=== PATIENT | male | born 1945 | race American Indian/Alaskan Native ===

== ENCOUNTER 2018-09-29 03:26 | Inpatient (IN) | payer MEDICARE ==
[2018-09-29] MEDS ORDERED: MethylPREDNISolone 40 mg Vial IVP STA (03:50)
[2018-09-29 04:12] LABS: VENOUS BLOOD GAS BASE EXCESS -4.7 mmol/L (0.0-2.0); VENOUS BLOOD GAS PCO2 37 mmHg (40-60); VENOUS BLOOD GAS PO2 54 mm/Hg (30-55); VENOUS BLOOD PH 7.35 (7.32-7.43)
[2018-09-29 04:14] LABS: BASO # 0.1 K/uL (0.0-0.2); BASO % 1.1 % (0.0-2.0); EOS # 0.6 K/uL (0.0-0.7); EOS % 9.1 % (0.0-4.0); HEMOGLOBIN 12.1 g/dL (12.0-18.0); LYMPH # 0.5 K/uL (1.0-4.3); LYMPH % 8.3 % (20.0-40.0); MEAN CELL VOLUME 77.3 fL (80.0-94.0); MEAN CORPUSCULAR HEMOGLOBIN 24.3 pg (27.0-31.0); MEAN CORPUSCULAR HGB CONC 31.4 g/dL (33.0-37.0); MONO # 0.7 K/uL (0.0-0.8); MONO % 11.9 % (0.0-10.0); NEUT # 4.4 K/uL (1.8-7.0); NEUT % 69.6 % (50.0-75.0); NRBC % 0.1 % (0.0-2.0); PLATELET COUNT 130 K/uL (130-400); RBC 4.99 Mil/uL (4.40-5.90); RED CELL DISTRIBUTION WIDTH 16.1 % (11.5-14.5); WHITE BLOOD COUNT 6.3 K/uL (4.8-10.8)
[2018-09-29 04:19] LABS: INR 1.1; PROTHROMBIN TIME 12.1 SECONDS (9.7-12.2)
[2018-09-29 04:46] LABS: ALB/GLOB RATIO 2.1 (1.0-2.1); ALBUMIN 5.2 g/dL (3.5-5.0); CALCIUM 9.7 mg/dl (8.6-10.4); TROPONIN I 0.205 ng/mL (0.00-0.120)
[2018-09-29 04:58] LABS: BASOPHIL 1 % (0-2); EOSINOPHIL 9 % (0-4); LYMPHOCYTE 9 % (20-40); MONOCYTE 14 % (0-10); NEUTROPHIL 67 % (50-75); TOTAL CELLS COUNTED 100
[2018-09-29 04:59] LABS: ANISOCYTOSIS SLIGHT; OVALOCYTES SLIGHT; PLATELET ESTIMATE SLIGHTLY DECREASED (NORMAL)
[2018-09-29 05:00] LABS: HYPOCHROMIC SLIGHT; MICROCYTOSIS SLIGHT; SCHISTOCYTES SLIGHT
[2018-09-29 05:01] LABS: POLYCHROMIC SLIGHT
[2018-09-29] MEDS ORDERED: Calcium Gluconate 4.65 mEq/10 ml Inj IVP STA (05:05)
[2018-09-29] MEDS ORDERED: Dextrose 50% SYRINGE Inj (50 ml) IV STA (05:05)
[2018-09-29] MEDS ORDERED: (Novolin R) Insulin Human Regular 100 units/ml vial SC STA (05:05)
[2018-09-29] MEDS ORDERED: Albuterol 0.083% Inhal Sol (2.5 mg/3 mL) UD INH STA (05:05)
[2018-09-29] MEDS ORDERED: Dextrose 25% Inj (10ml) ONE (05:18)
[2018-09-29] MEDS ORDERED: Calcium Gluconate 4.65 mEq/10 ml Inj ONE (05:18)
[2018-09-29] MEDS ORDERED: Albuterol 0.083% Inhal Sol (2.5 mg/3 mL) UD ONE (05:19)
[2018-09-29] MEDS ORDERED: (Novolin R) Insulin Human Regular 100 units/ml vial ONE (05:20)
--- NOTE | 2018-09-29 05:33 | C.PDOC ---
History Of Present Illness 73 year old male visiting from [place] presents to the ED complaining of shortness of breath for the last 2 days. Patient is in the end stage of a renal disease and missed his dialysis on Sunday. He will resume dialysis on Sunday. Kee nbadoni claims that his tongue feels bigger than normal. Time Seen by Provider: 09/29/18 03:49 Chief Complaint (Nursing): Shortness Of Breath History Per: Patient History/Exam Limitations: no limitations Onset/Duration Of Symptoms: Days (2) Current Symptoms Are (Timing): Still Present Past Medical History Reviewed: Historical Data, Nursing Documentation, Vital Signs Vital Signs: Last Vital Signs Temp 98.2 F 09/29/18 03:38 Pulse 73 09/29/18 03:38 Resp 24 09/29/18 03:38 BP 216/101 H 09/29/18 03:38 Pulse Ox 100 09/29/18 03:38 - Medical History PMH: HTN, Hyperlipidemia, End Stage Renal Disease Surgical History: Cholecystectomy (x3yrs ago) Family History: States: No Known Family Hx - Social History Hx Alcohol Use: Yes Hx Substance Use: No - Immunization History Hx Tetanus Toxoid Vaccination: No Hx Influenza Vaccination: No Review Of Systems Constitutional: Negative for: Fever, Chills, Weakness Eyes: Negative for: Redness, Other (scleral icterus) ENT: Negative for: Ear Discharge, Nose Discharge, Nose Congestion, Throat Pain Cardiovascular: Negative for: Chest Pain Respiratory: Positive for: Shortness of Breath. Negative for: Cough Gastrointestinal: Negative for: Nausea, Vomiting, Diarrhea Genitourinary: Negative for: Dysuria, Hematuria Musculoskeletal: Negative for: Back Pain Skin: Negative for: Rash Neurological: Negative for: Weakness, Numbness, Confusion, Dizziness ED Course And Treatment - Laboratory Results Result Diagrams: 09/29/18 04:11 09/29/18 04:11 Lab Results: pO2 54 mm/Hg (30-55) 09/29/18 04:05 VBG pH 7.35 (7.32-7.43) 09/29/18 04:05 VBG pCO2 37 mmHg (40-60) L 09/29/18 04:05 VBG HCO3 20.9 mmol/L 09/29/18 04:05 VBG Total CO2 21.5 mmol/L (22-28) L 09/29/18 04:05 VBG O2 Sat (Calc) 85.2 % (40-65) H 09/29/18 04:05 VBG Base Excess -4.7 mmol/L (0.0-2.0) L 09/29/18 04:05 VBG Potassium 6.2 mmol/L (3.6-5.2) H* 09/29/18 04:05 Sodium 136.0 mmol/l (132-148) 09/29/18 04:05 Chloride 102.0 mmol/L (98-107) 09/29/18 04:05 Glucose 98 mg/dl (75-110) 09/29/18 04:05 Lactate 0.7 mmol/L (0.7-2.1) 09/29/18 04:05 Crit Value Called To Rupa conway/rn 09/29/18 04:05 Crit Value Called By Elton pino/rt 09/29/18 04:05 Crit Value Read Back Y 09/29/18 04:05 Blood Gas Notified Time 415 09/29/18 04:05 PT 12.1 SECONDS (9.7-12.2) 09/29/18 04:11 INR 1.1 09/29/18 04:11 Troponin I 0.2050 ng/mL (0.00-0.120) H* 09/29/18 04:11 NT-Pro-B Natriuret Pep 10702 pg/mL (0-900) H 09/29/18 04:11 Total Bilirubin 0.7 mg/dL (0.2-1.3) 09/29/18 04:11 AST 35 U/L (17-59) 09/29/18 04:11 ALT 23 U/L (21-72) 09/29/18 04:11 Alkaline Phosphatase 81 U/L (38-126) 09/29/18 04:11 Total Protein 7.7 g/dL (6.3-8.3) 09/29/18 04:11 Albumin 5.2 g/dL (3.5-5.0) H 09/29/18 04:11 Globulin 2.4 gm/dL (2.2-3.9) 09/29/18 04:11 Albumin/Globulin Ratio 2.1 (1.0-2.1) 09/29/18 04:11 O2 Sat by Pulse Oximetry: 100 Disposition - Disposition
--- NOTE | 2018-09-29 05:33 | C.PDOC ---
History Of Present Illness 73 year old male visiting from [place] presents to the ED complaining of shortness of breath for the last 2 days. Patient is in the end stage of a renal disease and missed his dialysis on Sunday. He will resume dialysis on Sunday. P guy claims that his tongue feels bigger than normal. <MerlineAlejandro - Last Filed: 09/29/18 06:48> History Per: Patient History/Exam Limitations: no limitations Onset/Duration Of Symptoms: Days (2) Current Symptoms Are (Timing): Still Present Associated Symptoms: denies: Fever, Chills, Sweating, Chest Pain <Alejandro Rick - Last Filed: 09/29/18 06:48> <Hayley Ferreira - Last Filed: 09/29/18 07:52> Time Seen by Provider: 09/29/18 03:49 Chief Complaint (Nursing): Shortness Of Breath Past Medical History Reviewed: Historical Data, Nursing Documentation, Vital Signs Vital Signs: Last Vital Signs Temp 98.2 F 09/29/18 03:38 Pulse 73 09/29/18 03:38 Resp 24 09/29/18 03:38 BP 216/101 H 09/29/18 03:38 Pulse Ox 100 09/29/18 03:38 - Medical History PMH: HTN, Hyperlipidemia, End Stage Renal Disease Surgical History: Cholecystectomy (x3yrs ago) Family History: States: No Known Family Hx - Social History Hx Alcohol Use: Yes Hx Substance Use: No - Immunization History Hx Tetanus Toxoid Vaccination: No Hx Influenza Vaccination: No <MerlineAlejandro - Last Filed: 09/29/18 06:48> Vital Signs: Last Vital Signs Temp 98.2 F 09/29/18 03:38 Pulse 76 09/29/18 06:58 Resp 24 09/29/18 03:38 BP 216/101 H 09/29/18 03:38 Pulse Ox 100 09/29/18 06:51 <Hayley Ferreira - Last Filed: 09/29/18 07:52> Review Of Systems Constitutional: Negative for: Fever, Chills, Weakness Eyes: Negative for: Redness, Other (scleral icterus) ENT: Positive for: Other (tongue "feels bigger than normal"). Negative for: Ear Discharge, Nose Discharge, Nose Congestion, Throat Pain Cardiovascular: Negative for: Chest Pain Respiratory: Positive for: Shortness of Breath. Negative for: Cough Gastrointestinal: Negative for: Nausea, Vomiting, Abdominal Pain, Diarrhea Musculoskeletal: Negative for: Back Pain Skin: Negative for: Rash Neurological: Negative for: Weakness, Numbness, Dizziness <ChicoblayneAlejandro - Last Filed: 09/29/18 06:48> Physical Exam - Physical Exam Appears: Well, Non-toxic, In Acute Distress (mild respiratory distress) Skin: Normal Color, Warm, Dry Head: Atraumatic, Normacephalic Eye(s): bilateral: Normal Inspection, PERRL, EOMI Ear(s): Bilateral: Normal Nose: Normal Oral Mucosa: Moist Tongue: Swelling (able to swallow secretions) Lips: No Swelling Throat: Other (airway maintained) Neck: Normal, Trachea Midline, Supple Chest: Symmetrical Cardiovascular: Other Respiratory: Accessory Muscle Use, No Rales, No Rhonchi, No Stridor, No Wheezing, Other (moving air well) Gastrointestinal/Abdominal: No Distention Extremity: No Pedal Edema Extremity: Left: Other (shunt to left bicep), Bilateral: Atraumatic Pulses: Left Radial: Normal, Right Radial: Normal Neurological/Psych: Oriented x3, Normal Cranial Nerves <ChicoblayneAlejandro - Last Filed: 09/29/18 06:48> ED Course And Treatment - Laboratory Results Result Diagrams: 09/29/18 04:11 09/29/18 04:11 Lab Results: pO2 54 mm/Hg (30-55) 09/29/18 04:05 VBG pH 7.35 (7.32-7.43) 09/29/18 04:05 VBG pCO2 37 mmHg (40-60) L 09/29/18 04:05 VBG HCO3 20.9 mmol/L 09/29/18 04:05 VBG Total CO2 21.5 mmol/L (22-28) L 09/29/18 04:05 VBG O2 Sat (Calc) 85.2 % (40-65) H 09/29/18 04:05 VBG Base Excess -4.7 mmol/L (0.0-2.0) L 09/29/18 04:05 VBG Potassium 6.2 mmol/L (3.6-5.2) H* 09/29/18 04:05 Sodium 136.0 mmol/l (132-148) 09/29/18 04:05 Chloride 102.0 mmol/L (98-107) 09/29/18 04:05 Glucose 98 mg/dl (75-110) 09/29/18 04:05 Lactate 0.7 mmol/L (0.7-2.1) 09/29/18 04:05 Crit Value Called To Rupa conway/rn 09/29/18 04:05 Crit Value Called By Elton pino/rt 09/29/18 04:05 Crit Value Read Back Y 09/29/18 04:05 Blood Gas Notified Time 415 09/29/18 04:05 PT 12.1 SECONDS (9.7-12.2) 09/29/18 04:11 INR 1.1 09/29/18 04:11 Troponin I 0.2050 ng/mL (0.00-0.120) H* 09/29/18 04:11 Total Bilirubin 0.7 mg/dL (0.2-1.3) 09/29/18 04:11 AST 35 U/L (17-59) 09/29/18 04:11 ALT 23 U/L (21-72) 09/29/18 04:11 Alkaline Phosphatase 81 U/L (38-126) 09/29/18 04:11 Total Protein 7.7 g/dL (6.3-8.3) 09/29/18 04:11 Albumin 5.2 g/dL (3.5-5.0) H 09/29/18 04:11 Globulin 2.4 gm/dL (2.2-3.9) 09/29/18 04:11 Albumin/Globulin Ratio 2.1 (1.0-2.1) 09/29/18 04:11 O2 Sat by Pulse Oximetry: 100 (RA) Pulse Ox Interpretation: Normal <Alejandro Rick - Last Filed: 09/29/18 06:48> - Laboratory Results Result Diagrams: 09/29/18 04:11 09/29/18 04:11 Lab Results: pO2 54 mm/Hg (30-55) 09/29/18 04:05 VBG pH 7.35 (7.32-7.43) 09/29/18 04:05 VBG pCO2 37 mmHg (40-60) L 09/29/18 04:05 VBG HCO3 20.9 mmol/L 09/29/18 04:05 VBG Total CO2 21.5 mmol/L (22-28) L 09/29/18 04:05 VBG O2 Sat (Calc) 85.2 % (40-65) H 09/29/18 04:05 VBG Base Excess -4.7 mmol/L (0.0-2.0) L 09/29/18 04:05 VBG Potassium 6.2 mmol/L (3.6-5.2) H* 09/29/18 04:05 Sodium 136.0 mmol/l (132-148) 09/29/18 04:05 Chloride 102.0 mmol/L (98-107) 09/29/18 04:05 Glucose 98 mg/dl (75-110) 09/29/18 04:05 Lactate 0.7 mmol/L (0.7-2.1) 09/29/18 04:05 Crit Value Called To Rupa conway/rn 09/29/18 04:05 Crit Value Called By Elton pino/rt 09/29/18 04:05 Crit Value Read Back Y 09/29/18 04:05 Blood Gas Notified Time 415 09/29/18 04:05 PT 12.1 SECONDS (9.7-12.2) 09/29/18 04:11 INR 1.1 09/29/18 04:11 Troponin I 0.2050 ng/mL (0.00-0.120) H* 09/29/18 04:11 NT-Pro-B Natriuret Pep 79287 pg/mL (0-900) H 09/29/18 04:11 Total Bilirubin 0.7 mg/dL (0.2-1.3) 09/29/18 04:11 AST 35 U/L (17-59) 09/29/18 04:11 ALT 23 U/L (21-72) 09/29/18 04:11 Alkaline Phosphatase 81 U/L (38-126) 09/29/18 04:11 Total Protein 7.7 g/dL (6.3-8.3) 09/29/18 04:11 Albumin 5.2 g/dL (3.5-5.0) H 09/29/18 04:11 Globulin 2.4 gm/dL (2.2-3.9) 09/29/18 04:11 Albumin/Globulin Ratio 2.1 (1.0-2.1) 09/29/18 04:11 <Hayley Ferreira - Last Filed: 09/29/18 07:52> Medical Decision Making Medical Decision Making: Plan: Blood work, Glucose finger stick, EKG and Chest X-Ray ordered. IV fluids, Albuterol inhaler, and Bipap administered. Patient improved after bipap and meds <Alejandro Rick - Last Filed: 09/29/18 06:48> Disposition - Disposition Disposition Time: 05:33 <Alejandro Rick - Last Filed: 09/29/18 06:48> <Hayley Ferreira - Last Filed: 09/29/18 07:52> - Disposition Disposition: HOSPITALIZED Condition: STABLE - Clinical Impression Clinical Impression: Hyperkalemia, Fluid overload, Shortness of breath, ESRD needing dialysis - Scribe Statement The provider has reviewed the documentation as recorded by the Scribe (Amy Mitchell) All medical record entries made by the Scribe were at my direction and personally dictated by me. I have reviewed the chart and agree that the record accurately reflects my personal performance of the history, physical exam, medical decision making, and the department course for this patient. I have also personally directed, reviewed, and agree with the discharge instructions and disposition. <Alejandro Rick - Last Filed: 09/29/18 06:48> Decision To Admit - Pt Status Changed To: Hospital Disposition Of: Observation - . Bed Request Type: Regular Admitting Physician: Ainsley Choudhary <MerlineAlejandro - Last Filed: 09/29/18 06:48> <Hayley Ferreira - Last Filed: 09/29/18 07:52> - . Patient Diagnosis: Hyperkalemia, Fluid overload, Shortness of breath, ESRD needing dialysis Addendum Addendum: 09/29/18 07:50 Patient persistently hypertensive, twitching. Contacted HD staff, comming in for HD. Patient to go to the ICU. Dr. Barnes at the bedside. <Hayley Ferreira - Last Filed: 09/29/18 07:52>
--- NOTE | 2018-09-29 06:28 | CP.PCM.HP ---
<Tres Coello - Last Filed: 09/29/18 07:01> History of Present Illness - History of Present Illness History of Present Illness: Medicine History and Physical for Hospitalist Service, Dr. Ainsley Choudhary 73 y o male PMhx ESRD on HD, HTN, hypothyroidism presents to the ED c/o worsening shortness of breath x 2 days. Pt is visiting from [place] with for grandsons birthday this weekend and states they purposely missed HD appt on Sunday in [place] because they were away. Pts provided most of history at bedside due to pts current clinical status. States that pt was unable to fall asleep overnight due to worsening shortness of breath for the past several hrs at rest. When the shortness of breath started 2 days ago, pt thought it was 2/2 seasonal allergies and took dose of Benadryl for symptoms, which only helped a little. Also today c/o tongue swelling but pt states since being in the ED that has improved. Denies headache, dizziness, vision changes, chest pain, palpitations, n/v/d/c, abd pain, urinary complaints, LE edema, or other symptoms. PMhx: as noted above PSurgHx: Hernia surgery 3 mos ago, total thyroidectomy 2/2 nodules 7-8 y ago, cholecystectomy ([id number]) Allergies: NKDA Home meds: reviewed as per BRANDAN Dudley hx: DM2 Soc hx: Former cigar smoker quit 10 y ago; admits to having several alcoholic drinks this past weekend; denies illicit drug use; lives in [place] with Present on Admission - Present on Admission Any Indicators Present on Admission: No Review of Systems - Constitutional Constitutional: Fatigue, Malaise. absent: Chills, Fever - EENT Eyes: absent: Change in Vision - Cardiovascular Cardiovascular: Dyspnea, Dyspnea on Exertion. absent: Chest Pain, Palpitations, Pedal Edema, Syncope - Respiratory Respiratory: Dyspnea. absent: Cough, Wheezing, Chest Congestion - Gastrointestinal Gastrointestinal: absent: Abdominal Pain, Constipation, Diarrhea, Nausea, Vomiting - Genitourinary Genitourinary: absent: Change in Urinary Stream, Difficulty Urinating, Dysuria Past Patient History - Infectious Disease Hx of Infectious Diseases: None - Past Social History Smoking Status: Never Smoked - CARDIAC Hx Hypertension: Yes - RENAL Hx Dialysis: Yes Type of Dialysis Access: fistula to left arm - PSYCHIATRIC Hx Substance Use: No - SURGICAL HISTORY Hx Cholecystectomy: Yes (x3yrs ago) Meds Allergies/Adverse Reactions: Allergies Allergy/AdvReac Type Severity Reaction Status Date / Time No Known Allergies Allergy Unverified 09/29/18 03:41 Physical Exam - Constitutional Appears: Non-toxic, No Acute Distress Additional comments: On 100% non-rebreather mask - Head Exam Head Exam: ATRAUMATIC, NORMOCEPHALIC - Eye Exam Eye Exam: EOMI, Normal appearance, PERRL - ENT Exam ENT Exam: Mucous Membranes Moist - Respiratory Exam Respiratory Exam: Clear to Auscultation Bilateral, NORMAL BREATHING PATTERN. absent: Rales, Rhonchi, Wheezes - Cardiovascular Exam Cardiovascular Exam: REGULAR RHYTHM, +S1, +S2. absent: Gallop, Rubs, Systolic Murmur - GI/Abdominal Exam GI & Abdominal Exam: Normal Bowel Sounds, Soft. absent: Distended, Organomegaly, Tenderness - Extremities Exam Extremities exam: Positive for: full ROM, normal capillary refill, normal inspection, pedal pulses present. Negative for: pedal edema, tenderness - Neurological Exam Neurological exam: Alert, CN II-XII Intact, Oriented x3, Reflexes Normal - Skin Skin Exam: Dry, Intact, Normal Color, Warm Results - Vital Signs Recent Vital Signs: Last Vital Signs Temp 98.2 F 09/29/18 03:38 Pulse 73 09/29/18 03:38 Resp 24 09/29/18 03:38 BP 216/101 H 09/29/18 03:38 Pulse Ox 100 09/29/18 05:53 - Labs Result Diagrams: 09/29/18 04:11 09/29/18 04:11 Labs: Laboratory Results - last 24 hr 09/29/18 09/29/18 09/29/18 03:42 04:05 04:11 WBC 6.3 RBC 4.99 Hgb 12.1 Hct 38.5 MCV 77.3 L MCH 24.3 L MCHC 31.4 L RDW 16.1 H Plt Count 130 MPV 9.0 Neut % (Auto) 69.6 Lymph % (Auto) 8.3 L Barry % (Auto) 11.9 H Eos % (Auto) 9.1 H Baso % (Auto) 1.1 Neut # (Auto) 4.4 Lymph # (Auto) 0.5 L Barry # (Auto) 0.7 Eos # (Auto) 0.6 Baso # (Auto) 0.1 Neutrophils % (Manual) 67 Lymphocytes % (Manual) 9 L Monocytes % (Manual) 14 H Eosinophils % (Manual) 9 H Basophils % (Manual) 1 Platelet Estimate Slightly decreased L Polychromasia Slight Hypochromasia (manual) Slight Anisocytosis (manual) Slight Microcytosis (manual) Slight Macrocytosis (manual) Slight Ovalocytes Slight Schistocytes Slight PT INR pO2 54 VBG pH 7.35 VBG pCO2 37 L VBG HCO3 20.9 VBG Total CO2 21.5 L VBG O2 Sat (Calc) 85.2 H VBG Base Excess -4.7 L VBG Potassium 6.2 H* Sodium 136.0 Chloride 102.0 Glucose 98 Lactate 0.7 Crit Value Called To Rupa conway/rn Crit Value Called By Elton pino/rt Crit Value Read Back Y Blood Gas Notified Time 415 Potassium Carbon Dioxide Anion Gap BUN Creatinine Est GFR ( Amer) Est GFR (Non-Af Amer) POC Glucose (mg/dL) 103 Random Glucose Calcium Total Bilirubin AST ALT Alkaline Phosphatase Troponin I NT-Pro-B Natriuret Pep Total Protein Albumin Globulin Albumin/Globulin Ratio Venous Blood Potassium 6.2 H* 09/29/18 09/29/18 04:11 04:11 WBC RBC Hgb Hct MCV MCH MCHC RDW Plt Count MPV Neut % (Auto) Lymph % (Auto) Barry % (Auto) Eos % (Auto) Baso % (Auto) Neut # (Auto) Lymph # (Auto) Barry # (Auto) Eos # (Auto) Baso # (Auto) Neutrophils % (Manual) Lymphocytes % (Manual) Monocytes % (Manual) Eosinophils % (Manual) Basophils % (Manual) Platelet Estimate Polychromasia Hypochromasia (manual) Anisocytosis (manual) Microcytosis (manual) Macrocytosis (manual) Ovalocytes Schistocytes PT 12.1 INR 1.1 pO2 VBG pH VBG pCO2 VBG HCO3 VBG Total CO2 VBG O2 Sat (Calc) VBG Base Excess VBG Potassium Sodium 136 Chloride 97 L Glucose Lactate Crit Value Called To Crit Value Called By Crit Value Read Back Blood Gas Notified Time Potassium 6.5 H* Carbon Dioxide 20 L Anion Gap 26 H BUN 117 H* Creatinine 14.6 H* Est GFR ( Amer) 4 Est GFR (Non-Af Amer) 3 POC Glucose (mg/dL) Random Glucose 96 Calcium 9.7 Total Bilirubin 0.7 AST 35 ALT 23 Alkaline Phosphatase 81 Troponin I 0.2050 H* NT-Pro-B Natriuret Pep 99560 H Total Protein 7.7 Albumin 5.2 H Globulin 2.4 Albumin/Globulin Ratio 2.1 Venous Blood Potassium Assessment & Plan - Assessment and Plan (Free Text) Assessment: 73 y o male PMhx ESRD on HD, HTN, hypothyroidism presents to the ED c/o worsening shortness of breath x 2 days. Presenting with CHF exacerbation 2/2 missed dialysis appt, elevated troponin, hypertensive urgency. Admitted to tele. Plan: CHF exacerbation, fluid overload, shortness of breath -Admit to tele -May be 2/2 missed HD appt -Nephro (Dr. Coppola) consulted, recs appreciated, pt may need urgent hemodialysis -Cardio (Dr. Talamantes) consulted, recs appreciated -BNP 15894 on admission -Trop 0.2 on admission, NACHO x2 pending -Echo ordered -Daily weights, strict I's/O's -Diuresis prn -EKG on admission shows NSR 75 bpm, L axis deviation, peaked T-waves in V1-V6 -Renal diet -Currently on non-rebreather mask, cont to monitor Hyperkalemia -K 6.5 on admission -May be 2/2 missed HD appt -S/p albuterol, Ca gluconate, D50, insulin 10 in ED -F/u repeat CMP Hx ESRD on HD -Nephro consulted, Dr. Coppola, recs appreciated -Calcitriol daily -Cinacalcet daily -MVT daily HTN urgency -BP 200s/100s in ED, s/p Hydralazine x1 -Norvasc 10 mg PO daily -Hydralazine 100 mg PO tid -Hydralazine 10 mg IVP q6h prn -Labetalol 200 mg PO bid -Torsemide 100 mg PO daily -Pending A1c, lipid panel Hx hypothyroidism s/p total thyroidectomy -Synthroid 200 mcg PO daily -Thyroid studies pending PPX: Heparin, Protonix Pt seen, examined with, and plan discussed with Dr. Ainsley Choudhary, attending physician. Tres Coello DO PGY-1, Teletypewriter Installer Pager #[phone] <Ainsley Choudhary N - Last Filed: 09/30/18 06:07> Results - Vital Signs Recent Vital Signs: Last Vital Signs Temp 98 F 09/30/18 04:00 Pulse 68 09/30/18 06:01 Resp 15 09/30/18 06:01 BP 171/72 H 09/30/18 06:01 Pulse Ox 95 09/30/18 06:01 - Labs Result Diagrams: 09/29/18 04:11 09/29/18 15:45 Labs: Laboratory Results - last 24 hr 09/29/18 09/29/18 09/29/18 06:57 06:57 06:57 Sodium Potassium Chloride Carbon Dioxide Anion Gap BUN Creatinine Est GFR ( Amer) Est GFR (Non-Af Amer) Random Glucose Hemoglobin A1c 4.9 Calcium Total Creatine Kinase CK-MB (Mass) Troponin I Free T4 0.89 Free T3 pg/mL 2.07 L TSH 3rd Generation 17.10 H 09/29/18 09/29/18 09/29/18 09:54 15:45 21:07 Sodium 138 137 Potassium 7.3 H* 5.3 H Chloride 98 94 L Carbon Dioxide 17 L 22 Anion Gap 30 H 26 H BUN 127 H* 85 H Creatinine 15.2 H* 10.8 H* D Est GFR ( Amer) 4 6 Est GFR (Non-Af Amer) 3 5 Random Glucose 62 L D 107 D Hemoglobin A1c Calcium 9.9 9.7 Total Creatine Kinase 357 H 297 H CK-MB (Mass) 10.9 H 8.85 H Troponin I 0.1870 H* 0.2030 H* Free T4 Free T3 pg/mL TSH 3rd Generation Attending/Attestation - Attestation I have fully participated in the care of the patient.: Yes I have reviewed all pertinent clinical information: Yes
--- NOTE | 2018-09-29 07:15 | RAD ---
Chest x-ray single frontal view History: Shortness of breath. Comparison: 09/29/2018 Findings: Moderate venous congestion. Patchy airspace opacifications seen within the mid to lower lung zones bilaterally. Bilateral hilar prominence. Mild atelectasis in the right midlung zone. Suggestion of a small left pleural effusion. Enlarged ectatic aorta. Cardiomegaly. Degenerative changes in the spine and shoulders. Impression: Moderate venous congestion. Patchy airspace opacifications seen within the mid to lower lung zones bilaterally. Bilateral hilar prominence. Mild atelectasis in the right midlung zone. Suggestion of a small left pleural effusion. Enlarged ectatic aorta. Cardiomegaly.
[2018-09-29] MEDS ORDERED: Etomidate 20 mg/10ml Inj IV ONE (08:15)
[2018-09-29] MEDS ORDERED: Etomidate 20 mg/10ml Inj IV STA (08:19)
[2018-09-29] MEDS ORDERED: Succinylcholine Chloride 20 mg/ml Syr (5 ml) IV STA ×2 (08:19→08:27)
[2018-09-29 10:38] LABS: BLOOD UREA NITROGEN 127 mg/dL (9-20); CALCIUM 9.9 mg/dl (8.6-10.4); GFR NON-AFRICAN AMERICAN 3
[2018-09-29] MEDS ORDERED: Dextrose 50% SYRINGE Inj (50 ml) IV ONE (11:30)
[2018-09-29] MEDS: Multiple Vitamins Tab PO SCH (11:35)
[2018-09-29] MEDS: Levothyroxine 200 MCG TAB PO SCH (11:36)
[2018-09-29] MEDS ORDERED: Labetalol 5mg/ml (4ml) IV STA (11:48)
--- NOTE | 2018-09-29 11:55 | CP.PCM.PN ---
Subjective - Date & Time of Evaluation Date of Evaluation: 09/29/18 Time of Evaluation: 11:30 - Subjective Subjective: Patient was seen and examined by me. Patient is getting HD at this moment in ICU bed 7. He is awake and responding, however he is drowsy. He is following simple commands like raising arm, squeezing my hand, sticking out his tounge, moving his feet and legs. He says that earlier he had tachycardia and palpitations. His and daughter are at bedside and we discussed with them. As mentioned in the medical information officer's HP the patient travelled and was recently with family gathering and eating foods that he would not normally eat. They again say that he did not get his HD and then last night appeared tired, coughing and then breathing became much worse His K was very high and he recived calcium gluconate IV Objective - Vital Signs/Intake and Output Vital Signs (last 24 hours): Temp Pulse Resp BP Pulse Ox 97.4 F L 63 16 191/78 H 100 09/29/18 09:50 09/29/18 11:00 09/29/18 11:00 09/29/18 11:20 09/29/18 09:50 - Medications Medications: Current Medications Amlodipine Besylate (Norvasc) 10 mg PO DAILY [facility] Calcitriol (Rocaltrol) 0.25 mcg PO DAILY [facility] Last Admin: 09/29/18 11:36 Dose: Not Given Cinacalcet (Sensipar) 30 mg PO DAILY [facility] Last Admin: 09/29/18 11:36 Dose: Not Given Heparin Sodium (Porcine) (Heparin) 5,000 units SC Q8 [facility] Hydralazine HCl (Apresoline) 100 mg PO TID [facility] Hydralazine HCl (Apresoline) 10 mg IVP Q6H PRN PRN Reason: Systolic Blood Pressure Last Admin: 09/29/18 10:42 Dose: 10 mg Labetalol HCl (Trandate) 200 mg PO BID [facility] Levothyroxine Sodium (Synthroid) 200 mcg PO DAILY [facility] Last Admin: 09/29/18 11:36 Dose: Not Given Multivitamins (Hexavitamin) 1 tab PO DAILY [facility] Last Admin: 09/29/18 11:35 Dose: Not Given Pantoprazole Sodium (Protonix Inj) 40 mg IVP DAILY [facility] Last Admin: 09/29/18 11:37 Dose: 40 mg Torsemide (Demadex) 100 mg PO DAILY [facility] Last Admin: 09/29/18 11:35 Dose: Not Given - Labs Labs: 09/29/18 04:11 09/29/18 09:54 PT 12.1 SECONDS (9.7-12.2) 09/29/18 04:11 INR 1.1 09/29/18 04:11 - Constitutional Appears: Confused - Head Exam Head Exam: NORMAL INSPECTION, NORMOCEPHALIC - Eye Exam Eye Exam: EOMI - ENT Exam ENT Exam: Mucous Membranes Moist Additional comments: Family member at bedside and they tell me beth is slightly swollen - Cardiovascular Exam Cardiovascular Exam: REGULAR RHYTHM - GI/Abdominal Exam GI & Abdominal Exam: Soft, Normal Bowel Sounds. absent: Firm, Guarding, Rigid, Tenderness - Neurological Exam Neurological Exam: Alert, Altered, Awake Neuro motor strength exam: Left Upper Extremity: 5, Right Upper Extremity: 5, Left Lower Extremity: 4, Right Lower Extremity: 4 - Psychiatric Exam Psychiatric exam: Flat Affect - Skin Skin Exam: Normal Color, Warm Assessment and Plan - Assessment and Plan (Free Text) Assessment: 73 y o male PMhx ESRD on HD, HTN, hypothyroidism presents to the ED c/o worsening shortness of breath x 2 days. Presenting with CHF exacerbation 2/2 missed dialysis appt, elevated troponin, hypertensive urgency. Plan: CHF exacerbation, fluid overload, shortness of breath 6/2: Getting HD right now in the ICU. Repeat CXRAY tommorow. Borderline elevated troponins probably from ESRD as well as the tachycardia he was previously having. Echo has been ordered, repeat EKG later today Cardiology evaulation pending From before: BNP [id number] on admission Trop 0.2 on admission, additional cardiac enzymes pending EKG on admission shows NSR 75 bpm, L axis deviation, peaked T-waves in V1-V6 Hyperkalemia, history of ESRD with HD MWF 09/29: Has been recieving calclium gluconate. Now getting HD Not having palpitations at this time (patient reported previously he was) He missed HD on Sunday because he was travelling to [place] get [facility] [place] 6.5 on admission Hx ESRD on HD 09/29: As mentioned above the patient gets HD MWF. He missed Sunday HD. Last HD was on Wednesday Appreciate nephrology consult, recs appreciated Continue with the Calcitriol and Cinacalcet daily CXRAY tommowo HTN urgency, fluid overload 09/29: BP 200s/100s in ED, s/p Hydralazine x1 Norvasc 10 mg PO daily Hydralazine 100 mg PO tid Hydralazine 10 mg IVP q6h prn Labetalol 200 mg PO bid Torsemide 100 mg PO daily Hx hypothyroidism s/p total thyroidectomy 09/29: TSH was elevated 17. Synthroid 200 mcg PO daily PPX: Heparin, Protonix
--- NOTE | 2018-09-29 13:09 | CP.PCM.CON ---
History of Present Illness - History of Present Illness History of Present Illness: ICU evaluation for elevated blood pressure, hyperkalemia, generalized twitching 73-year-old male with history of end-stage renal disease on hemodialysis, hypertension, hypothyroidism presented to emergency room with shortness of breat h getting worse over the past 2 days. In the emergency room patient found to have elevated blood pressure and twitching of the body with hyperkalemia. 7 PMhx: as noted above PSurgHx: Hernia surgery 3 mos ago, total thyroidectomy 2/2 nodules 7-8 y ago, cholecystectomy ([id number]) Allergies: NKDA Home meds: reviewed as per JUN Fam hx: DM2 Soc hx: Former cigar smoker quit 10 y ago; admits to having several alcoholic drinks this past weekend; denies illicit drug use; lives in [place] with Review of Systems - Review of Systems Systems not reviewed;Unavailable: Altered Mental Status Past Patient History - Infectious Disease Hx of Infectious Diseases: None - Past Social History Smoking Status: Never Smoked - CARDIAC Hx Hypertension: Yes - RENAL Hx Dialysis: Yes Type of Dialysis Access: fistula to left arm - PSYCHIATRIC Hx Substance Use: No - SURGICAL HISTORY Hx Cholecystectomy: Yes (x3yrs ago) Meds Allergies/Adverse Reactions: Allergies Allergy/AdvReac Type Severity Reaction Status Date / Time No Known Allergies Allergy Unverified 09/29/18 03:41 - Medications Medications: Current Medications Amlodipine Besylate (Norvasc) 10 mg PO DAILY [facility] Calcitriol (Rocaltrol) 0.25 mcg PO DAILY [facility] Last Admin: 09/29/18 11:36 Dose: Not Given Cinacalcet (Sensipar) 30 mg PO DAILY [facility] Last Admin: 09/29/18 11:36 Dose: Not Given Heparin Sodium (Porcine) (Heparin) 5,000 units SC Q8 [facility] Hydralazine HCl (Apresoline) 100 mg PO TID [facility] Hydralazine HCl (Apresoline) 10 mg IVP Q6H PRN PRN Reason: Systolic Blood Pressure Last Admin: 09/29/18 10:42 Dose: 10 mg Nicardipine HCl 25 mg/ Sodium (Chloride) 250 mls @ 25 mls/hr IV .Q10H [facility]; Protocol Labetalol HCl (Trandate) 200 mg PO BID [facility] Levothyroxine Sodium (Synthroid) 200 mcg PO DAILY [facility] Last Admin: 09/29/18 11:36 Dose: Not Given Multivitamins (Hexavitamin) 1 tab PO DAILY [facility] Last Admin: 09/29/18 11:35 Dose: Not Given Pantoprazole Sodium (Protonix Inj) 40 mg IVP DAILY [facility] Last Admin: 09/29/18 11:37 Dose: 40 mg Torsemide (Demadex) 100 mg PO DAILY [facility] Last Admin: 09/29/18 11:35 Dose: Not Given Physical Exam - Head Exam Head Exam: ATRAUMATIC, NORMOCEPHALIC - ENT Exam ENT Exam: Mucous Membranes Moist - Neck Exam Neck exam: Positive for: Normal Inspection - Respiratory Exam Respiratory Exam: Rales, Rhonchi - Cardiovascular Exam Cardiovascular Exam: REGULAR RHYTHM - GI/Abdominal Exam GI & Abdominal Exam: Normal Bowel Sounds, Soft - Extremities Exam Extremities exam: Positive for: normal inspection - Neurological Exam Neurological exam: Altered Results - Vital Signs Recent Vital Signs: Last Vital Signs Temp 97.4 F L 09/29/18 09:50 Pulse 63 09/29/18 11:00 Resp 16 09/29/18 11:00 BP 196/84 H 09/29/18 11:50 Pulse Ox 100 09/29/18 09:50 - Labs Result Diagrams: 09/29/18 04:11 09/29/18 09:54 Labs: Laboratory Results - last 24 hr 09/29/18 09/29/18 09/29/18 03:42 04:05 04:11 WBC 6.3 RBC 4.99 Hgb 12.1 Hct 38.5 MCV 77.3 L MCH 24.3 L MCHC 31.4 L RDW 16.1 H Plt Count 130 MPV 9.0 Neut % (Auto) 69.6 Lymph % (Auto) 8.3 L [place] % (Auto) 11.9 H Eos % (Auto) 9.1 H Baso % (Auto) 1.1 Neut # (Auto) 4.4 Lymph # (Auto) 0.5 L [place] # (Auto) 0.7 Eos # (Auto) 0.6 Baso # (Auto) 0.1 Neutrophils % (Manual) 67 Lymphocytes % (Manual) 9 L Monocytes % (Manual) 14 H Eosinophils % (Manual) 9 H Basophils % (Manual) 1 Platelet Estimate Slightly decreased L Polychromasia Slight Hypochromasia (manual) Slight Anisocytosis (manual) Slight Microcytosis (manual) Slight Macrocytosis (manual) Slight Ovalocytes Slight Schistocytes Slight PT INR pO2 54 VBG pH 7.35 VBG pCO2 37 L VBG HCO3 20.9 VBG Total CO2 21.5 L VBG O2 Sat (Calc) 85.2 H VBG Base Excess -4.7 L VBG Potassium 6.2 H* Sodium 136.0 Chloride 102.0 Glucose 98 Lactate 0.7 Crit Value Called To Rupa conway/rn Crit Value Called By Elton pino/rt Crit Value Read Back Y Blood Gas Notified Time 415 Potassium Carbon Dioxide Anion Gap BUN Creatinine Est GFR ( Amer) Est GFR (Non-Af Amer) POC Glucose (mg/dL) 103 Random Glucose Hemoglobin A1c Calcium Total Bilirubin AST ALT Alkaline Phosphatase Troponin I NT-Pro-B Natriuret Pep Total Protein Albumin Globulin Albumin/Globulin Ratio Free T4 Free T3 pg/mL TSH 3rd Generation Venous Blood Potassium 6.2 H* 09/29/18 09/29/18 09/29/18 04:11 04:11 06:57 WBC RBC Hgb Hct MCV MCH MCHC RDW Plt Count MPV Neut % (Auto) Lymph % (Auto) [place] % (Auto) Eos % (Auto) Baso % (Auto) Neut # (Auto) Lymph # (Auto) [place] # (Auto) Eos # (Auto) Baso # (Auto) Neutrophils % (Manual) Lymphocytes % (Manual) Monocytes % (Manual) Eosinophils % (Manual) Basophils % (Manual) Platelet Estimate Polychromasia Hypochromasia (manual) Anisocytosis (manual) Microcytosis (manual) Macrocytosis (manual) Ovalocytes Schistocytes PT 12.1 INR 1.1 pO2 VBG pH VBG pCO2 VBG HCO3 VBG Total CO2 VBG O2 Sat (Calc) VBG Base Excess VBG Potassium Sodium 136 Chloride 97 L Glucose Lactate Crit Value Called To Crit Value Called By Crit Value Read Back Blood Gas Notified Time Potassium 6.5 H* Carbon Dioxide 20 L Anion Gap 26 H BUN 117 H* Creatinine 14.6 H* Est GFR ( Amer) 4 Est GFR (Non-Af Amer) 3 POC Glucose (mg/dL) Random Glucose 96 Hemoglobin A1c 4.9 Calcium 9.7 Total Bilirubin 0.7 AST 35 ALT 23 Alkaline Phosphatase 81 Troponin I 0.2050 H* NT-Pro-B Natriuret Pep 51009 H Total Protein 7.7 Albumin 5.2 H Globulin 2.4 Albumin/Globulin Ratio 2.1 Free T4 Free T3 pg/mL TSH 3rd Generation Venous Blood Potassium 09/29/18 09/29/18 09/29/18 06:57 06:57 09:54 WBC RBC Hgb Hct MCV MCH MCHC RDW Plt Count MPV Neut % (Auto) Lymph % (Auto) [place] % (Auto) Eos % (Auto) Baso % (Auto) Neut # (Auto) Lymph # (Auto) [place] # (Auto) Eos # (Auto) Baso # (Auto) Neutrophils % (Manual) Lymphocytes % (Manual) Monocytes % (Manual) Eosinophils % (Manual) Basophils % (Manual) Platelet Estimate Polychromasia Hypochromasia (manual) Anisocytosis (manual) Microcytosis (manual) Macrocytosis (manual) Ovalocytes Schistocytes PT INR pO2 VBG pH VBG pCO2 VBG HCO3 VBG Total CO2 VBG O2 Sat (Calc) VBG Base Excess VBG Potassium Sodium 138 Chloride 98 Glucose Lactate Crit Value Called To Crit Value Called By Crit Value Read Back Blood Gas Notified Time Potassium 7.3 H* Carbon Dioxide 17 L Anion Gap 30 H BUN 127 H* Creatinine 15.2 H* Est GFR ( Amer) 4 Est GFR (Non-Af Amer) 3 POC Glucose (mg/dL) Random Glucose 62 L D Hemoglobin A1c Calcium 9.9 Total Bilirubin AST ALT Alkaline Phosphatase Troponin I NT-Pro-B Natriuret Pep Total Protein Albumin Globulin Albumin/Globulin Ratio Free T4 0.89 Free T3 pg/mL 2.07 L TSH 3rd Generation 17.10 H Venous Blood Potassium Assessment & Plan (1) Hypertensive emergency Status: Acute Comment: Patient started on Cardene drip after no response to hydralazine and labetalol (2) Fluid overload Status: Acute Comment: Shortness of breath secondary to fluid overload. Follow-up chest x-ray postdialysis (3) ESRD needing dialysis Status: Acute Comment: Hemodialysis. Twitching of the body most likely secondary to very high BUN. Monitor hyperkalemia (4) Hyperkalemia Status: Acute (5) Shortness of breath Status: Acute
[2018-09-29] MEDS: niCARdipine IV 25 MG in Sodium Chloride 0.9% 240 ML IV SCH ×3 (13:20→22:43)
[2018-09-29 16:23] LABS: CALCIUM 9.7 mg/dl (8.6-10.4); CK-MB 10.9 ng/mL (0.0-3.38); TROPONIN I 0.187 ng/mL (0.00-0.120)
--- NOTE | 2018-09-29 16:30 | RAD ---
Chest x-ray single frontal view HISTORY: Fluid overload. Comparison: 09/29/2018 Findings: Worsening now moderate to severe venous congestion. Worsening airspace consolidative changes in the mid lung zones. Worsening bilateral pleural effusions. Right hilar prominence. Atherosclerotic calcification at the aortic knob. Degenerative changes in the spine and shoulders. Suggestion of chronic deformities of some right lower lateral ribs. Impression: Worsening now moderate to severe venous congestion. Worsening airspace consolidative changes in the mid lung zones. Worsening bilateral pleural effusions. Right hilar prominence. Atherosclerotic calcification at the aortic knob. Degenerative changes in the spine and shoulders. Suggestion of chronic deformities of some right lower lateral ribs.
--- NOTE | 2018-09-29 18:01 | CP.PCM.CON ---
History of Present Illness - History of Present Illness History of Present Illness: renal consult note 73 yrs old esrd visiting from [place], htn on mwf schedule. last dialysis on sunday. admitted with sob, chest pain in er noted to have hyperkalemia, high bun and volume overloaded meds reviewed unable to obtain ros as altered labs reviewd social hx non smoker no alcohol surgical hx reviewed vitals reviewed on face mask op moist no jvd [id number] present bilateral air entry decreased abd soft nt nd altered, moaning skin normal esrd/htn/sob/chf/hyperkalemia/ams/uremia hd mwf extra session today then tomorrow again will do only 2.5 hours, avoid rapid bun changes as he is already altered and twtiching potassium should improve post hd monitor phos levels uf as tolerated bp stable Past Patient History - Infectious Disease Hx of Infectious Diseases: None - Past Medical History & Family History Past Medical History?: Yes - Past Social History Smoking Status: Never Smoked - CARDIAC Hx Hypertension: Yes - RENAL Hx Dialysis: Yes Type of Dialysis Access: fistula to left arm - MUSCULOSKELETAL/RHEUMATOLOGICAL Hx Falls: No - PSYCHIATRIC Hx Substance Use: No - SURGICAL HISTORY Hx Cholecystectomy: Yes (x3yrs ago) Meds Allergies/Adverse Reactions: Allergies Allergy/AdvReac Type Severity Reaction Status Date / Time No Known Allergies Allergy Unverified 09/29/18 03:41 - Medications Medications: Current Medications Amlodipine Besylate (Norvasc) 10 mg PO DAILY [facility] Calcitriol (Rocaltrol) 0.25 mcg PO DAILY [facility] Last Admin: 09/29/18 11:36 Dose: Not Given Cinacalcet (Sensipar) 30 mg PO DAILY [facility] Last Admin: 09/29/18 11:36 Dose: Not Given Heparin Sodium (Porcine) (Heparin) 5,000 units SC Q8 [facility] Last Admin: 09/29/18 16:04 Dose: Not Given Hydralazine HCl (Apresoline) 100 mg PO TID [facility] Last Admin: 09/29/18 16:04 Dose: Not Given Hydralazine HCl (Apresoline) 10 mg IVP Q6H PRN PRN Reason: Systolic Blood Pressure Last Admin: 09/29/18 10:42 Dose: 10 mg Nicardipine HCl 25 mg/ Sodium (Chloride) 250 mls @ 25 mls/hr IV .Q10H [facility]; Prot ocol Labetalol HCl (Trandate) 200 mg PO BID [facility] Levothyroxine Sodium (Synthroid) 200 mcg PO DAILY [facility] Last Admin: 09/29/18 11:36 Dose: Not Given Multivitamins (Hexavitamin) 1 tab PO DAILY [facility] Last Admin: 09/29/18 11:35 Dose: Not Given Pantoprazole Sodium (Protonix Inj) 40 mg IVP DAILY [facility] Last Admin: 09/29/18 11:37 Dose: 40 mg Torsemide (Demadex) 100 mg PO DAILY [facility] Last Admin: 09/29/18 11:35 Dose: Not Given Results - Vital Signs Recent Vital Signs: Last Vital Signs Temp 96.0 F L 09/29/18 16:00 Pulse 79 09/29/18 16:00 Resp 19 09/29/18 16:00 BP 168/71 H 09/29/18 15:42 Pulse Ox 93 L 09/29/18 16:00 - Labs Result Diagrams: 09/29/18 04:11 09/29/18 15:45 Labs: Laboratory Results - last 24 hr 09/29/18 09/29/18 09/29/18 03:42 04:05 04:11 WBC 6.3 RBC 4.99 Hgb 12.1 Hct 38.5 MCV 77.3 L MCH 24.3 L MCHC 31.4 L RDW 16.1 H Plt Count 130 MPV 9.0 Neut % (Auto) 69.6 Lymph % (Auto) 8.3 L [place] % (Auto) 11.9 H Eos % (Auto) 9.1 H Baso % (Auto) 1.1 Neut # (Auto) 4.4 Lymph # (Auto) 0.5 L [place] # (Auto) 0.7 Eos # (Auto) 0.6 Baso # (Auto) 0.1 Neutrophils % (Manual) 67 Lymphocytes % (Manual) 9 L Monocytes % (Manual) 14 H Eosinophils % (Manual) 9 H Basophils % (Manual) 1 Platelet Estimate Slightly decreased L Polychromasia Slight Hypochromasia (manual) Slight Anisocytosis (manual) Slight Microcytosis (manual) Slight Macrocytosis (manual) Slight Ovalocytes Slight Schistocytes Slight PT INR pO2 54 VBG pH 7.35 VBG pCO2 37 L VBG HCO3 20.9 VBG Total CO2 21.5 L VBG O2 Sat (Calc) 85.2 H VBG Base Excess -4.7 L VBG Potassium 6.2 H* Sodium 136.0 Chloride 102.0 Glucose 98 Lactate 0.7 Crit Value Called To Rupa conway/rn Crit Value Called By Elton pino/rt Crit Value Read Back Y Blood Gas Notified Time 415 Potassium Carbon Dioxide Anion Gap BUN Creatinine Est GFR ( Amer) Est GFR (Non-Af Amer) POC Glucose (mg/dL) 103 Random Glucose Hemoglobin A1c Calcium Total Bilirubin AST ALT Alkaline Phosphatase Total Creatine Kinase CK-MB (Mass) Troponin I NT-Pro-B Natriuret Pep Total Protein Albumin Globulin Albumin/Globulin Ratio Free T4 Free T3 pg/mL TSH 3rd Generation Venous Blood Potassium 6.2 H* 09/29/18 09/29/18 09/29/18 04:11 04:11 06:57 WBC RBC Hgb Hct MCV MCH MCHC RDW Plt Count MPV Neut % (Auto) Lymph % (Auto) [place] % (Auto) Eos % (Auto) Baso % (Auto) Neut # (Auto) Lymph # (Auto) [place] # (Auto) Eos # (Auto) Baso # (Auto) Neutrophils % (Manual) Lymphocytes % (Manual) Monocytes % (Manual) Eosinophils % (Manual) Basophils % (Manual) Platelet Estimate Polychromasia Hypochromasia (manual) Anisocytosis (manual) Microcytosis (manual) Macrocytosis (manual) Ovalocytes Schistocytes PT 12.1 INR 1.1 pO2 VBG pH VBG pCO2 VBG HCO3 VBG Total CO2 VBG O2 Sat (Calc) VBG Base Excess VBG Potassium Sodium 136 Chloride 97 L Glucose Lactate Crit Value Called To Crit Value Called By Crit Value Read Back Blood Gas Notified Time Potassium 6.5 H* Carbon Dioxide 20 L Anion Gap 26 H BUN 117 H* Creatinine 14.6 H* Est GFR ( Amer) 4 Est GFR (Non-Af Amer) 3 POC Glucose (mg/dL) Random Glucose 96 Hemoglobin A1c 4.9 Calcium 9.7 Total Bilirubin 0.7 AST 35 ALT 23 Alkaline Phosphatase 81 Total Creatine Kinase CK-MB (Mass) Troponin I 0.2050 H* NT-Pro-B Natriuret Pep 16877 H Total Protein 7.7 Albumin 5.2 H Globulin 2.4 Albumin/Globulin Ratio 2.1 Free T4 Free T3 pg/mL TSH 3rd Generation Venous Blood Potassium 06/02/19 06/02/19 06/02/19 06:57 06:57 09:54 WBC RBC Hgb Hct MCV MCH MCHC RDW Plt Count MPV Neut % (Auto) Lymph % (Auto) [place] % (Auto) Eos % (Auto) Baso % (Auto) Neut # (Auto) Lymph # (Auto) [place] # (Auto) Eos # (Auto) Baso # (Auto) Neutrophils % (Manual) Lymphocytes % (Manual) Monocytes % (Manual) Eosinophils % (Manual) Basophils % (Manual) Platelet Estimate Polychromasia Hypochromasia (manual) Anisocytosis (manual) Microcytosis (manual) Macrocytosis (manual) Ovalocytes Schistocytes PT INR pO2 VBG pH VBG pCO2 VBG HCO3 VBG Total CO2 VBG O2 Sat (Calc) VBG Base Excess VBG Potassium Sodium 138 Chloride 98 Glucose Lactate Crit Value Called To Crit Value Called By Crit Value Read Back Blood Gas Notified Time Potassium 7.3 H* Carbon Dioxide 17 L Anion Gap 30 H BUN 127 H* Creatinine 15.2 H* Est GFR ( Amer) 4 Est GFR (Non-Af Amer) 3 POC Glucose (mg/dL) Random Glucose 62 L D Hemoglobin A1c Calcium 9.9 Total Bilirubin AST ALT Alkaline Phosphatase Total Creatine Kinase CK-MB (Mass) Troponin I NT-Pro-B Natriuret Pep Total Protein Albumin Globulin Albumin/Globulin Ratio Free T4 0.89 Free T3 pg/mL 2.07 L TSH 3rd Generation 17.10 H Venous Blood Potassium 09/29/18 15:45 WBC RBC Hgb Hct MCV MCH MCHC RDW Plt Count MPV Neut % (Auto) Lymph % (Auto) [place] % (Auto) Eos % (Auto) Baso % (Auto) Neut # (Auto) Lymph # (Auto) [place] # (Auto) Eos # (Auto) Baso # (Auto) Neutrophils % (Manual) Lymphocytes % (Manual) Monocytes % (Manual) Eosinophils % (Manual) Basophils % (Manual) Platelet Estimate Polychromasia Hypochromasia (manual) Anisocytosis (manual) Microcytosis (manual) Macrocytosis (manual) Ovalocytes Schistocytes PT INR pO2 VBG pH VBG pCO2 VBG HCO3 VBG Total CO2 VBG O2 Sat (Calc) VBG Base Excess VBG Potassium Sodium 137 Chloride 94 L Glucose Lactate Crit Value Called To Crit Value Called By Crit Value Read Back Blood Gas Notified Time Potassium 5.3 H Carbon Dioxide 22 Anion Gap 26 H BUN 85 H Creatinine 10.8 H* D Est GFR ( Amer) 6 Est GFR (Non-Af Amer) 5 POC Glucose (mg/dL) Random Glucose 107 D Hemoglobin A1c Calcium 9.7 Total Bilirubin AST ALT Alkaline Phosphatase Total Creatine Kinase 357 H CK-MB (Mass) 10.9 H Troponin I 0.1870 H* NT-Pro-B Natriuret Pep Total Protein Albumin Globulin Albumin/Globulin Ratio Free T4 Free T3 pg/mL TSH 3rd Generation Venous Blood Potassium
--- NOTE | 2018-09-29 18:02 | CP.PCM.PN ---
Subjective - Date & Time of Evaluation Date of Evaluation: 09/29/18 Time of Evaluation: 11:00 - Subjective Subjective: renal dialyssi note patient seen on dialysis uf as tolerated vitals reviewed Objective - Vital Signs/Intake and Output Vital Signs (last 24 hours): Temp Pulse Resp BP Pulse Ox 96.0 F L 79 19 168/71 H 93 L 09/29/18 16:00 09/29/18 16:00 09/29/18 16:00 09/29/18 15:42 09/29/18 16:00 Intake and Output: 09/29/18 09/29/18 06:59 18:59 Intake Total 425 Output Total 65 Balance 360 - Medications Medications: Current Medications Amlodipine Besylate (Norvasc) 10 mg PO DAILY [facility] Calcitriol (Rocaltrol) 0.25 mcg PO DAILY [facility] Last Admin: 09/29/18 11:36 Dose: Not Given Cinacalcet (Sensipar) 30 mg PO DAILY [facility] Last Admin: 09/29/18 11:36 Dose: Not Given Heparin Sodium (Porcine) (Heparin) 5,000 units SC Q8 [facility] Last Admin: 09/29/18 16:04 Dose: Not Given Hydralazine HCl (Apresoline) 100 mg PO TID [facility] Last Admin: 09/29/18 16:04 Dose: Not Given Hydralazine HCl (Apresoline) 10 mg IVP Q6H PRN PRN Reason: Systolic Blood Pressure Last Admin: 09/29/18 10:42 Dose: 10 mg Nicardipine HCl 25 mg/ Sodium (Chloride) 250 mls @ 25 mls/hr IV .Q10H [facility]; Protocol Labetalol HCl (Trandate) 200 mg PO BID [facility] Levothyroxine Sodium (Synthroid) 200 mcg PO DAILY [facility] Last Admin: 09/29/18 11:36 Dose: Not Given Multivitamins (Hexavitamin) 1 tab PO DAILY [facility] Last Admin: 09/29/18 11:35 Dose: Not Given Pantoprazole Sodium (Protonix Inj) 40 mg IVP DAILY [facility] Last Admin: 09/29/18 11:37 Dose: 40 mg Torsemide (Demadex) 100 mg PO DAILY [facility] Last Admin: 09/29/18 11:35 Dose: Not Given - Labs Labs: 09/29/18 04:11 09/29/18 15:45 PT 12.1 SECONDS (9.7-12.2) 09/29/18 04:11 INR 1.1 09/29/18 04:11
[2018-09-29 21:43] LABS: CK-MB 8.85 ng/mL (0.0-3.38); TROPONIN I 0.203 ng/mL (0.00-0.120)
[2018-09-30 06:05] LABS: BASO % 0.3 % (0.0-2.0); EOS % 0.1 % (0.0-4.0); HEMOGLOBIN 11.9 g/dL (12.0-18.0); LYMPH # 0.4 K/uL (1.0-4.3); LYMPH % 6.6 % (20.0-40.0); MEAN CELL VOLUME 78.1 fL (80.0-94.0); MEAN CORPUSCULAR HEMOGLOBIN 25.3 pg (27.0-31.0); MEAN CORPUSCULAR HGB CONC 32.4 g/dL (33.0-37.0); MEAN PLATELET VOLUME 9.4 fL (7.2-11.7); MONO # 0.7 K/uL (0.0-0.8); MONO % 13.6 % (0.0-10.0); NEUT # 4.3 K/uL (1.8-7.0); NEUT % 79.4 % (50.0-75.0); NRBC % 0.1 % (0.0-2.0); PLATELET COUNT 123 K/uL (130-400); RED CELL DISTRIBUTION WIDTH 16.2 % (11.5-14.5); WHITE BLOOD COUNT 5.4 K/uL (4.8-10.8)
[2018-09-30 06:25] LABS: ALB/GLOB RATIO 1.5 (1.0-2.1); ALBUMIN 4.1 g/dL (3.5-5.0); CALCIUM 9.3 mg/dl (8.6-10.4)
[2018-09-30 08:09] LABS: HEPATITIS B SURFACE AG Negative (NEGATIVE)
[2018-09-30 08:14] LABS: HEPATITIS B CORE AB NEGATIVE (NEGATIVE)
[2018-09-30 08:23] LABS: LYMPHOCYTE 4 % (20-40); MONOCYTE 13 % (0-10); NEUTROPHIL 83 % (50-75); TOTAL CELLS COUNTED 100
[2018-09-30 08:24] LABS: ANISOCYTOSIS SLIGHT; HYPOCHROMIC SLIGHT; PLATELET ESTIMATE SLIGHTLY DECREASED (NORMAL)
[2018-09-30 08:26] LABS: HEPATITIS C ANTIBODY NEGATIVE (NEGATIVE)
[2018-09-30 08:27] LABS: POLYCHROMIC SLIGHT; TARGET CELLS SLIGHT
[2018-09-30] MEDS: niCARdipine IV 25 MG in Sodium Chloride 0.9% 240 ML IV SCH (09:00)
[2018-09-30] MEDS: Levothyroxine 200 MCG TAB PO SCH (10:10)
[2018-09-30] MEDS: Multiple Vitamins Tab PO SCH (11:10)
--- NOTE | 2018-09-30 11:30 | CP.CCUPN ---
CCU Subjective - Physician Review Subjective (Free Text): PGY-[address] Collier Patient was seen and examined today at bedside in no acute distress with at bedside. Patient is resting comfortably and responding to questions easily. He states he is no longer feeling shaky, but continues to feel chills. He felt better after the extra session of HD yesterday and is anxious for his regular MWF sessions to resume. He has no new complaints today. Denies fever, chills, headaches, chest pain, shortness of breath. He continues to not make urine. His appetite is fine. 14 point ROS otherwise negative. CCU Objective - Vital Signs / Intake & Output Vital Signs (Last 4 hours): Vital Signs Temp Pulse Pulse Resp BP BP Pulse Ox 09/30/18 11:15 191/76 H 09/30/18 11:00 195/80 H 09/30/18 10:45 189/73 H 09/30/18 10:30 189/75 H 09/30/18 10:15 187/82 H 09/30/18 10:00 181/75 H 09/30/18 09:45 185/77 H 09/30/18 09:30 181/81 H 09/30/18 09:15 98 F 71 22 178/75 H 97 09/30/18 09:10 98 F 71 22 175/76 H Intake and Output (Last 8hrs): Intake & Output 09/29/18 09/30/18 09/30/18 22:59 06:59 14:59 Intake Total 1000 150 Output Total 15 Balance 985 150 Weight 180 lb 1.6 oz Intake: IV 500 25 Intake, IV Amount 350 75 Right Forearm 350 75 Oral 150 50 Output: Emesis 15 - Physical Exam Head: Positive for: Atraumatic, Normocephalic Mouth: Positive for: Moist Mucous Membranes Neck: Positive for: Normal Range of Motion Respiratory/Chest: Positive for: Clear to Auscultation, Accessory Muscle Use Cardiovascular: Positive for: Regular Rate and Rhythm Abdomen: Positive for: Normal Bowel Sounds Neurological: Positive for: GCS=15, Speech Normal - Medications Active Medications: Active Medications Generic Name Dose Route Start Last Admin Trade Name Freq PRN Reason Stop Dose Admin Amlodipine Besylate 10 mg 09/30/18 10:00 09/30/18 11:09 Norvasc PO 10 mg DAILY [facility] Administration Calcitriol 0.25 mcg 09/29/18 10:00 09/30/18 11:11 Rocaltrol PO 0.25 mcg DAILY [facility] Administration Cinacalcet 30 mg 09/29/18 10:00 09/29/18 11:36 Sensipar PO Not Given DAILY [facility] Heparin Sodium (Porcine) 5,000 units 09/29/18 14:00 09/30/18 05:50 Heparin SC 5,000 units Q8 SO[facility] Administration Nicardipine HCl 25 mg/ Sodium 250 mls @ 25 mls/hr 09/29/18 13:00 09/30/18 09:00 Chloride IV Not Given .Q10H SO[facility] Protocol 2.5 MG/HR Labetalol HCl 200 mg 09/29/18 18:00 09/30/18 11:15 Trandate PO 200 mg BID SOY Administration Levothyroxine Sodium 200 mcg 09/29/18 10:00 09/29/18 11:36 Synthroid PO Not Given DAILY [facility] Multivitamins 1 tab 09/29/18 10:00 09/30/18 11:10 Hexavitamin PO 1 tab DAILY [facility] Administration Pantoprazole Sodium 40 mg 09/29/18 10:00 09/29/18 11:37 Protonix Inj IVP 40 mg DAILY [facility] Administration Sevelamer Carbonate 2,400 mg 09/30/18 12:00 Renvela PO TIDCC SOY Torsemide 100 mg 09/29/18 10:00 09/30/18 11:14 Demadex PO 100 mg DAILY SO[facility] Administration - Patient Studies Lab Studies: Lab Studies 09/30/18 09/30/18 09/29/18 Range/Units 05:52 05:52 21:07 WBC 5.4 (4.8-10.8) K/uL RBC 4.70 (4.40-5.90) Mil/uL Hgb 11.9 L (12.0-18.0) g/dL Hct 36.7 (35.0-51.0) % MCV 78.1 L (80.0-94.0) fL MCH 25.3 L (27.0-31.0) pg MCHC 32.4 L (33.0-37.0) g/dL RDW 16.2 H (11.5-14.5) % Plt Count 123 L (130-400) K/uL MPV 9.4 (7.2-11.7) fL Neut % (Auto) 79.4 H (50.0-75.0) % Lymph % (Auto) 6.6 L (20.0-40.0) % Montgomery % (Auto) 13.6 H (0.0-10.0) % Eos % (Auto) 0.1 (0.0-4.0) % Baso % (Auto) 0.3 (0.0-2.0) % Neut # (Auto) 4.3 (1.8-7.0) K/uL Lymph # (Auto) 0.4 L (1.0-4.3) K/uL Montgomery # (Auto) 0.7 (0.0-0.8) K/uL Eos # (Auto) 0.0 (0.0-0.7) K/uL Baso # (Auto) 0.0 (0.0-0.2) K/uL Neutrophils % (Manual) 83 H (50-75) % Lymphocytes % (Manual) 4 L (20-40) % Monocytes % (Manual) 13 H (0-10) % Platelet Estimate Slightly decreased L (NORMAL) Polychromasia Slight Hypochromasia (manual) Slight Anisocytosis (manual) Slight Target Cells Slight Sodium 137 (132-148) mmol/L Potassium 6.3 H* (3.6-5.2) mmol/L Chloride 95 L (98-107) mmol/L Carbon Dioxide 22 (22-30) mmol/L Anion Gap 26 H (10-20) BUN 101 H* (9-20) mg/dL Creatinine 12.4 H* (0.8-1.5) mg/dL Est GFR ( Amer) 5 Est GFR (Non-Af Amer) 4 Random Glucose 107 (75-110) mg/dL Calcium 9.3 (8.6-10.4) mg/dl Phosphorus 10.1 H (2.5-4.5) mg/dL Magnesium 2.4 H (1.6-2.3) mg/dL Total Bilirubin 0.8 (0.2-1.3) mg/dL AST 28 (17-59) U/L ALT 25 (21-72) U/L Alkaline Phosphatase 73 (38-126) U/L Total Creatine Kinase 297 H (55-170) U/L CK-MB (Mass) 8.85 H (0.0-3.38) ng/mL Troponin I 0.2030 H* (0.00-0.120) ng/mL Total Protein 6.8 (6.3-8.3) g/dL Albumin 4.1 (3.5-5.0) g/dL Globulin 2.7 (2.2-3.9) gm/dL Albumin/Globulin Ratio 1.5 (1.0-2.1) Triglycerides 63 (0-149) mg/dL Cholesterol 153 (0-199) mg/dL LDL Cholesterol Direct 70 (0-129) mg/dL HDL Cholesterol 52 (30-70) mg/dL Hep Bs Antigen (NEGATIVE) Hep Bs Antibody (NEGATIVE) Hep B Core IgM Ab (NEGATIVE) Hepatitis C Antibody (NEGATIVE) 09/29/18 09/29/18 09/29/18 Range/Units 15:45 09:54 09:54 WBC (4.8-10.8) K/uL RBC (4.40-5.90) Mil/uL Hgb (12.0-18.0) g/dL Hct (35.0-51.0) % MCV (80.0-94.0) fL MCH (27.0-31.0) pg MCHC (33.0-37.0) g/dL RDW (11.5-14.5) % Plt Count (130-400) K/uL MPV (7.2-11.7) fL Neut % (Auto) (50.0-75.0) % Lymph % (Auto) (20.0-40.0) % Montgomery % (Auto) (0.0-10.0) % Eos % (Auto) (0.0-4.0) % Baso % (Auto) (0.0-2.0) % Neut # (Auto) (1.8-7.0) K/uL Lymph # (Auto) (1.0-4.3) K/uL Montgomery # (Auto) (0.0-0.8) K/uL Eos # (Auto) (0.0-0.7) K/uL Baso # (Auto) (0.0-0.2) K/uL Neutrophils % (Manual) (50-75) % Lymphocytes % (Manual) (20-40) % Monocytes % (Manual) (0-10) % Platelet Estimate (NORMAL) Polychromasia Hypochromasia (manual) Anisocytosis (manual) Target Cells Sodium 137 (132-148) mmol/L Potassium 5.3 H (3.6-5.2) mmol/L Chloride 94 L (98-107) mmol/L Carbon Dioxide 22 (22-30) mmol/L Anion Gap 26 H (10-20) BUN 85 H (9-20) mg/dL Creatinine 10.8 H* D (0.8-1.5) mg/dL Est GFR ( Amer) 6 Est GFR (Non-Af Amer) 5 Random Glucose 107 D (75-110) mg/dL Calcium 9.7 (8.6-10.4) mg/dl Phosphorus (2.5-4.5) mg/dL Magnesium (1.6-2.3) mg/dL Total Bilirubin (0.2-1.3) mg/dL AST (17-59) U/L ALT (21-72) U/L Alkaline Phosphatase (38-126) U/L Total Creatine Kinase 357 H (55-170) U/L CK-MB (Mass) 10.9 H (0.0-3.38) ng/mL Troponin I 0.1870 H* (0.00-0.120) ng/mL Total Protein (6.3-8.3) g/dL Albumin (3.5-5.0) g/dL Globulin (2.2-3.9) gm/dL Albumin/Globulin Ratio (1.0-2.1) Triglycerides (0-149) mg/dL Cholesterol (0-199) mg/dL LDL Cholesterol Direct (0-129) mg/dL HDL Cholesterol (30-70) mg/dL Hep Bs Antigen Negative (NEGATIVE) Hep Bs Antibody Positive (NEGATIVE) Hep B Core IgM Ab Negative (NEGATIVE) Hepatitis C Antibody Negative (NEGATIVE) Laboratory Results - last 24 hr 09/29/18 09/29/18 09/29/18 09:54 09:54 15:45 WBC RBC Hgb Hct MCV MCH MCHC RDW Plt Count MPV Neut % (Auto) Lymph % (Auto) Montgomery % (Auto) Eos % (Auto) Baso % (Auto) Neut # (Auto) Lymph # (Auto) Montgomery # (Auto) Eos # (Auto) Baso # (Auto) Neutrophils % (Manual) Lymphocytes % (Manual) Monocytes % (Manual) Platelet Estimate Polychromasia Hypochromasia (manual) Anisocytosis (manual) Target Cells Sodium 137 Potassium 5.3 H Chloride 94 L Carbon Dioxide 22 Anion Gap 26 H BUN 85 H Creatinine 10.8 H* D Est GFR ( Amer) 6 Est GFR (Non-Af Amer) 5 Random Glucose 107 D Calcium 9.7 Phosphorus Magnesium Total Bilirubin AST ALT Alkaline Phosphatase Total Creatine Kinase 357 H CK-MB (Mass) 10.9 H Troponin I 0.1870 H* Total Protein Albumin Globulin Albumin/Globulin Ratio Triglycerides Cholesterol LDL Cholesterol Direct HDL Cholesterol Hep Bs Antigen Negative Hep Bs Antibody Positive Hep B Core IgM Ab Negative Hepatitis C Antibody Negative 09/29/18 09/30/18 09/30/18 21:07 05:52 05:52 WBC 5.4 RBC 4.70 Hgb 11.9 L Hct 36.7 MCV 78.1 L MCH 25.3 L MCHC 32.4 L RDW 16.2 H Plt Count 123 L MPV 9.4 Neut % (Auto) 79.4 H Lymph % (Auto) 6.6 L Montgomery % (Auto) 13.6 H Eos % (Auto) 0.1 Baso % (Auto) 0.3 Neut # (Auto) 4.3 Lymph # (Auto) 0.4 L Montgomery # (Auto) 0.7 Eos # (Auto) 0.0 Baso # (Auto) 0.0 Neutrophils % (Manual) 83 H Lymphocytes % (Manual) 4 L Monocytes % (Manual) 13 H Platelet Estimate Slightly decreased L Polychromasia Slight Hypochromasia (manual) Slight Anisocytosis (manual) Slight Target Cells Slight Sodium 137 Potassium 6.3 H* Chloride 95 L Carbon Dioxide 22 Anion Gap 26 H BUN 101 H* Creatinine 12.4 H* Est GFR ( Amer) 5 Est GFR (Non-Af Amer) 4 Random Glucose 107 Calcium 9.3 Phosphorus 10.1 H Magnesium 2.4 H Total Bilirubin 0.8 AST 28 ALT 25 Alkaline Phosphatase 73 Total Creatine Kinase 297 H CK-MB (Mass) 8.85 H Troponin I 0.2030 H* Total Protein 6.8 Albumin 4.1 Globulin 2.7 Albumin/Globulin Ratio 1.5 Triglycerides 63 Cholesterol 153 LDL Cholesterol Direct 70 HDL Cholesterol 52 Hep Bs Antigen Hep Bs Antibody Hep B Core IgM Ab Hepatitis C Antibody Radiology Impressions: Radiology Impressions Chest X-Ray 09/29/18 15:24 Impression: Worsening now moderate to severe venous congestion. Worsening airspace consolidative changes in the mid lung zones. Worsening bilateral pleural effusions. Right hilar prominence. Atherosclerotic calcification at the aortic knob. Degenerative changes in the spine and shoulders. Suggestion of chronic deformities of some right lower lateral ribs. EKG/Cardiology Studies: Cardiology / EKG Studies 09/29/18 18:00 EKG [ELECTROCARDIOGRAM] Routine Comment: Mode Of Transportation: Reason For Exam: Elevated K, ESRD Fingerstick Blood Sugar Results: 140 Critical Care Progress Note - Nutrition Nutrition: Nutrition Category Date Time Status Renal Diet [DIET] Diets 09/29/18 Breakfast Active Assessment/Plan - Assessment and Plan (Free Text) Assessment: 73yo M with PMH ESRD on HD MWF, HTN, DM, hypothyroidism presents to [facility] after intentionally missing HD on Sunday to attend his grandson's graduation. He started feeling weak and confused with shortness of breath and was found to be in metabolic encephalopathy. He was additionally monitored in the ICU for elevated troponins and hypertensive urgency. He was on a nicardipine drip that has since been switched to PO amlodipine. Plan: Neuro: AAOx3 GCS 15 Cardiovascular: Cardio consulted: Dr. Talamantes Hypertension BP continues to be elevated - Nicardipine drip stopped - started Amlodipine 10mg po daily - Labetalol 200mg po BID - Torsemide 100mg po daily Elevated Troponins - Trop 0.2050 -> 0.1870 -> 0.2030 - ProBNP 82,900 on admission - Lipid Panel (09/30): TG 63 Chol 153 LDL 70 HDL 52 - no acute ST changes from baseline EKG - per Drs. Talamantes and Nando, not Code Heart Patient had a cardiac work up less than 6 months for hernia surgery, and was told that he had "fluid around the heart" and surgery was postponed. Authorization for previous records faxed and pending reply results of previous ECHO. Regardless, f/u ECHO ordered. Respiratory: - serial CXR show worsening of fluid overload, improved with subsequent HD sessions - f/u procalcitonin, legionella, mycoplasma, strep Nephro: Nephro consulted: Dr. Coppola. Dr. Kaminski covering. ESRD on HD BUN/Cr today: 101/12.4 - received emergent HD 09/29. Resumed on normal MWF schedule today, 09/30. Tolerated HD well. - Sevelamer 2400mg po TIDCC - Cinacalcet 30mg po daily Electrolyte Imbalance - K remains elevated despite HD without TELE changes. K 6.3 today prior to HD - Calcium gluconate given once. Controlled via HD. - Mg 2.4H, P 10.1H - Controlled via HD Endo: Hypothyroidism TSH 17.10 on admission. Free T3 2.07L, Free T4 0.89 - Levothyroxine 200mcg po daily Diabetes Mellitus Strong family history and previously on medication. No longer on medication - Hgb A1c 4.9 this admission PPx: - DVT: Heparing 5000u SC q8 - GI: Pepcid 20mg po daily - Renal Diet - MVI Dispo: Patient is clear for downgrade to TELE as he is clinically improved. d/w Dr. Collier and RN during bedside rounds Zhane Aquino PGY-1 - Date & Time Date: 09/30/18 Time: 13:15
--- NOTE | 2018-09-30 12:56 | CP.PCM.PN ---
Subjective - Date & Time of Evaluation Date of Evaluation: 09/30/18 Time of Evaluation: 12:50 - Subjective Subjective: Medical Attending Note: Patient seen and examined this morning. He denies headache, denies chest pain, denies palpitations, denies nausea, denies vomitting, reports he had bowel movement. He reports he has been on dialysis for the past 4 years, he is outpatient M/W/F. He lives in [place] for the past 19 years; he was up here because his grandson was graduating from [employer]. He himself is originally from [place]. Prior to coming here, he had made arrangements to get dialysis up here while visiting his son. He reports he missed his session on Sunday because of travelling but reports he had a "Funny" feeling" which sounds like chills. He denies cardiac history in terms of [place]. He reports he has had echo about 6 months ago as preop workup in [place] for hernia surgery. Objective - Vital Signs/Intake and Output Vital Signs (last 24 hours): Temp Pulse Resp BP Pulse Ox 97.9 F 62 14 160/81 H 100 09/30/18 12:45 09/30/18 12:45 09/30/18 12:45 09/30/18 12:45 09/30/18 12:45 Intake and Output: 09/30/18 09/30/18 06:59 18:59 Intake Total 550 550 Balance 550 550 - Medications Medications: Current Medications Amlodipine Besylate (Norvasc) 10 mg PO DAILY [facility] Last Admin: 09/30/18 11:09 Dose: 10 mg Calcitriol (Rocaltrol) 0.25 mcg PO DAILY [facility] Last Admin: 09/30/18 11:11 Dose: 0.25 mcg Cinacalcet (Sensipar) 30 mg PO DAILY [facility] Last Admin: 09/29/18 11:36 Dose: Not Given Heparin Sodium (Porcine) (Heparin) 5,000 units SC Q8 [facility] Last Admin: 09/30/18 05:50 Dose: 5,000 units Nicardipine HCl 25 mg/ Sodium (Chloride) 250 mls @ 25 mls/hr IV .Q10H [facility]; Protocol Last Admin: 09/30/18 09:00 Dose: Not Given Labetalol HCl (Trandate) 200 mg PO BID [facility] Last Admin: 09/30/18 11:15 Dose: 200 mg Levothyroxine Sodium (Synthroid) 200 mcg PO DAILY [facility] Last Admin: 09/29/18 11:36 Dose: Not Given Multivitamins (Hexavitamin) 1 tab PO DAILY [facility] Last Admin: 09/30/18 11:10 Dose: 1 tab Pantoprazole Sodium (Protonix Inj) 40 mg IVP DAILY [facility] Last Admin: 09/30/18 12:31 Dose: Not Given Sevelamer Carbonate (Renvela) 2,400 mg PO TIDCC [facility] Last Admin: 09/30/18 12:05 Dose: Not Given Torsemide (Demadex) 100 mg PO DAILY [facility] Last Admin: 09/30/18 11:14 Dose: 100 mg - Labs Labs: 09/30/18 05:52 09/30/18 05:52 PT 12.1 SECONDS (9.7-12.2) 09/29/18 04:11 INR 1.1 09/29/18 04:11 - Constitutional Appears: Non-toxic, No Acute Distress - Head Exam Head Exam: NORMAL INSPECTION - Eye Exam Eye Exam: EOMI - ENT Exam ENT Exam: Mucous Membranes Dry - Respiratory Exam Respiratory Exam: Decreased Breath Sounds, NORMAL BREATHING PATTERN. absent: Rales, Rhonchi - Cardiovascular Exam Cardiovascular Exam: REGULAR RHYTHM, +S1, +S2 - GI/Abdominal Exam GI & Abdominal Exam: Soft, Normal Bowel Sounds. absent: Distended, Firm, Guarding, Rigid, Tenderness, Rebound - Extremities Exam Extremities Exam: absent: Pedal Edema, Tenderness - Neurological Exam Neurological Exam: Alert, Awake, Oriented x3 - Psychiatric Exam Psychiatric exam: Normal Affect, Normal Mood - Skin Skin Exam: Intact, Normal Color, Warm Assessment and Plan (1) Fluid overload Assessment & Plan: Chest xray (09/29/18): worsening now moderate to severe venous congestion worsening airspace consolidative changes in the mid lung zones, worsening b/l pleural effusions, atherosclerotic calcification at aortic knob. Degenerative changes in the spine and shoulders., Suggestion of chronic deformities of some right lower lateral ribs Patient to have chest xray post dialysis today check procalcitonin, legionella, myocplasma igm, strep pneumonia Status: Acute (2) Diabetes Assessment & Plan: a1c: 4.9 He is controlled diabetic; reports prominent family hx of diabetes; used to be on meds but he has controlled on his own Status: Chronic (3) Elevated troponin Assessment & Plan: Cardiology (Dr. haddad) pending evaluation Cardiac risk factors: male, hypertension, diabetes, esrd, former smoker Troponin: 0.2050, 0.1870, 0.2030 pending echo elevated probnp Controlled a1c (4.9) T, cholestrol: 153, chol: 70, HDL: 42 Status: Acute (4) ESRD needing dialysis Assessment & Plan: Patient is on outpatient dialysis (M/W/F) he missed his session last Sunday Status: Acute (5) Hyperkalemia Assessment & Plan: Nephrology (Dr. Wiley) on consult patient is presently getting dialysis at bedside As outpatient, he is Sunday/Sunday/Sunday f/u BMP Status: Acute (6) Electrolyte imbalance Assessment & Plan: patient is getting dialysis at bedside Potassium elevated (6.3) Phosphorous elevated (10.1) Calcitriol 0.25mcg PO daily Renvela 2400mg PO TIDCC (started today) Status: Acute (7) Hypertensive emergency Assessment & Plan: likely secondary to fluid overload state Patient's nicardipine drip held this morning. Norvasc 10mg PO daily Labetalol 200mg PO BID [place] 100mg PO daiily Patient is on dialysis (as outpatient m/w/) Status: Acute (8) Former smoker Status: Chronic (9) H/O total thyroidectomy Assessment & Plan: Synthroid 200mcg PO daily Status: Chronic (10) Prophylactic measure Assessment & Plan: DVT ppx: heparin 5000 units subq 8H GI ppx: switch from protonix to pepcid 20mg IV daily Status: Acute
--- NOTE | 2018-09-30 14:52 | RAD ---
Date of service: 09/30/2018 HISTORY: shortness of breath COMPARISON: Chest radiograph dated 09/29/2018. TECHNIQUE: 1 view obtained. FINDINGS: LUNGS: Improved aeration bilaterally. Residual patchy infiltrates in the right midlung. PLEURA: No significant pleural effusion identified, no pneumothorax apparent. CARDIOVASCULAR: Aortic atherosclerotic calcifications. Cardiomediastinal silhouette stably enlarged. OSSEOUS STRUCTURES: Changed. VISUALIZED UPPER ABDOMEN: Normal. OTHER FINDINGS: None. IMPRESSION: Improved aeration with mild residual patchy infiltrates in the right mid/lower lung.
--- NOTE | 2018-09-30 14:56 | CARD ---
APPROVED REPORT Date of service: 09/29/2018 EKG Measurement Heart [id number] <Conclusion> Sinus rhythm with 1st degree AV block Left axis deviation Anterior infarct, age undetermined Abnormal ECG
--- NOTE | 2018-09-30 15:00 | CARD ---
APPROVED REPORT Date of service: 09/29/2018 EKG Measurement Heart [id number] <Conclusion> Sinus rhythm with 1st degree AV block Possible Left atrial enlargement Left axis deviation Anterior infarct, age undetermined Abnormal ECG
--- NOTE | 2018-09-30 15:17 | CP.PCM.PN ---
Subjective - Date & Time of Evaluation Date of Evaluation: 09/30/18 Time of Evaluation: 11:00 - Subjective Subjective: Nephrology Consultation Note Assessment: critical Missed HD, HTN emergency with pulm edema and hyperkalemia Hypertensive Chronic Kidney Disease (I12.0) End stage renal disease (N18.6) dependence on hemodialysis (Z99.2) (MWF) via AVF Anemia (D64.9), Hyperphosphatemia (E83.39), Secondary Hyperparathyroidism (E21.1), HTN (I12.0) hypothyroidism Plan: Will plan for HD today as ordered. Continue with Nephrovite 1 tab/day. PRBC as needed for anemia. not on ERIN with dialysis as last Hb >10 added with phos binders, last phos level 10.1 Continue with calcitriol. also on sensipar BP control with meds as ordered. Patient not on RAAS sandra as with hyperkalemia Glycemic control, Dialysis consistent diet Further work up/management as per primary team Dose meds/antibiotics (if needed) for ESRD status. Avoid fleets enema/magnesium based laxatives. dialysis and dietary compliance d/w patient Thanks for allowing me to participate in care of your patient. Will follow patient with you. Please call if any Qs Dr Thomas Coppola Office: [phone] Subjective: Noted events overnight. Patients feels better. Denies chest pain, palpitation, shortness of breath, leg swelling. All other negative Physical Examination: seen during HD General Appearance: Comfortable, in no acute respiratory distress, co-operative . Vitals reviewed and noted as below Head; Atraumatic, normocephalic ENT: no ulcers no thrush. Tongue is midline. Oropharynx: no rash or ulcers. EYES: Pupils are equal, round and reactive to light accommodation. Eye muscles and extraocular movement intact. Sclera is anicteric. Neck; supple no lymphadenopathy, no thyromegaly or bruit Lungs: Normal respiratory rate/effort. Breath sounds bilateral reduced at bases Heart: Normal rate. s1s2 normal. No rub or gallop. Extremities: no edema. No varicose veins Neurological: Patient is alert, awake and oriented to person, place and time. No focal deficit. Strength bilateral appropriate and equal Skin: Warm and dry. Normal turgor. No rash. Palpitation: Normal elasticity for age Abdomen: Abdomen is soft. Bowel sounds +. There is no abdominal tenderness, no guarding/rigidity or organomegaly Psych: normal insight and normal affect/mood MSK: no joint tenderness or swelling. Digits and nails normal, no deformity : kidney or bladder not palpable Access: AVF Labs/imaging reviewed. Past medical history, past surgical history, family history, social history, allergy reviewed and noted as below Family Hx: no hx of CKD. Non contributory Objective - Vital Signs/Intake and Output Vital Signs (last 24 hours): Temp Pulse Resp BP Pulse Ox 97.9 F 115 H 18 158/74 H 99 09/30/18 14:38 09/30/18 14:38 09/30/18 14:38 09/30/18 14:38 09/30/18 14:38 Intake and Output: 09/30/18 09/30/18 06:59 18:59 Intake Total 550 790 Output Total 4000 Balance 550 -3210 - Medications Medications: Current Medications Amlodipine Besylate (Norvasc) 10 mg PO DAILY [facility] Last Admin: 09/30/18 11:09 Dose: 10 mg Calcitriol (Rocaltrol) 0.25 mcg PO DAILY [facility] Last Admin: 09/30/18 11:11 Dose: 0.25 mcg Cinacalcet (Sensipar) 30 mg PO DAILY [facility] Last Admin: 09/30/18 11:00 Dose: 30 mg Famotidine (Pepcid) 20 mg PO DAILY [facility] Heparin Sodium (Porcine) (Heparin) 5,000 units SC Q8 [facility] Last Admin: 09/30/18 14:14 Dose: 5,000 units Nicardipine HCl 25 mg/ Sodium (Chloride) 250 mls @ 25 mls/hr IV .Q10H [facility]; Protocol Last Admin: 09/30/18 09:00 Dose: Not Given Labetalol HCl (Trandate) 200 mg PO BID [facility] Last Admin: 09/30/18 11:15 Dose: 200 mg Levothyroxine Sodium (Synthroid) 200 mcg PO DAILY [facility] Last Admin: 09/30/18 10:10 Dose: 200 mcg Multivitamins (Hexavitamin) 1 tab PO DAILY [facility] Last Admin: 09/30/18 11:10 Dose: 1 tab Sevelamer Carbonate (Renvela) 2,400 mg PO TIDCC [facility] Last Admin: 09/30/18 12:05 Dose: Not Given Torsemide (Demadex) 100 mg PO DAILY [facility] Last Admin: 09/30/18 11:14 Dose: 100 mg - Labs Labs: 09/30/18 05:52 09/30/18 05:52 PT 12.1 SECONDS (9.7-12.2) 09/29/18 04:11 INR 1.1 09/29/18 04:11
[2018-09-30 18:06] LABS: CALCIUM 9.5 mg/dl (8.6-10.4)
[2018-09-30 19:34] LABS: MYCOPLASMA PNEUMONIAE IGM NEGATIVE (NEGATIVE)
--- NOTE | 2018-09-30 19:44 | CARD ---
APPROVED REPORT Date of service: 09/30/2018 EXAM: Two-dimensional and M-mode echocardiogram with Doppler and color Doppler. INDICATION Dyspnea esrd 2D DIMENSIONS IVSd1.8 (0.7-1.1cm)LVDd5.3 (3.9-5.9cm) PWd1.7 (0.7-1.1cm)LA Sqzaxp265 (18-58mL) LVDs4.0 (2.5-4.0cm)FS (%) 24.3 % LVEF (%)48.0 (>50%)LVEF (Ha's)48.87 % IVC0.00 cm M-Mode DIMENSIONS RVDd3.29 (2.1-3.2cm)Left Atrium (MM)5.86 (2.5-4.0cm) IVSd1.39 (0.7-1.1cm)Aortic Root3.13 (2.2-3.7cm) LVDd6.67 (4.0-5.6cm)Aortic Cusp Exc.1.88 (1.5-2.0cm) PWd1.27 (0.7-1.1cm)FS (%) 24 % LVDs5.09 (2.0-3.8cm)TAPSE15.62 cm LVEF (%)46 (>50%) Aortic Valve AI P 1/2 [id number] Mitral Valve MV E Ccuurteb164.9cm/sMV A Akttzpul519.6cm/sE/A ratio1.0 KRJV116.08 cm/s TDI Lateral E' Peak V5.19cm/sMedial E' Peak V3.64cm/sE/Lateral E'27.0 E/Medial E'38.4 Tricuspid Valve TR Peak [id number]/sTR Peak Gr.[id number] LEFT VENTRICLE The left ventricle is normal size. There is mild to moderate concentric left ventricular hypertrophy. The systolic function is mildly impaired. The Ejection Fraction is 45-50%. There is global hypokinesis of the left ventricle. LV filling pressure is increased No left ventricle thrombus noted on this study. There is no ventricular septal defect visualized. There is no left ventricular aneurysm. There is no mass noted in the left ventricle. RIGHT VENTRICLE The right ventricle is normal size. There is normal right ventricular wall thickness. The right ventricular systolic function is normal. ATRIA The left atrium is severely dilated. The right atrium is severely dilated. The interatrial septum is intact with no evidence for an atrial septal defect. AORTIC VALVE The aortic valve is normal in structure and function. There is mild aortic regurgitation. There is no aortic valvular stenosis. There is no aortic valvular vegetation. MITRAL VALVE The mitral valve is normal in structure and function. There is no evidence of mitral valve prolapse. There is no mitral valve stenosis. Mitral regurgitation is mild. TRICUSPID VALVE The tricuspid valve is normal in structure and function. There is mild to moderate tricuspid regurgitation. Right ventricular systolic pressure is estimated at greater than 60 mmHg. There is moderate-severe pulmonary hypertension. There is no tricuspid valve prolapse or vegetation. There is no tricuspid valve stenosis. PULMONIC VALVE The pulmonary valve is normal in structure and function. There is no pulmonic valvular regurgitation. There is no pulmonic valvular stenosis. GREAT VESSELS The aortic root is normal in size. The ascending aorta is normal in size. The pulmonary artery is normal. The IVC is normal in size and collapses >50% with inspiration. PERICARDIAL EFFUSION The pericardium appears normal. There is no pleural effusion. <Conclusion> There is mild to moderate concentric left ventricular hypertrophy. The systolic function is mildly impaired. The Ejection Fraction is 45-50%. There is global hypokinesis of the left ventricle. LV filling pressure is increased The left atrium is severely dilated. The right atrium is severely dilated. There is mild aortic regurgitation. Mitral regurgitation is mild. There is mild to moderate tricuspid regurgitation. Right ventricular systolic pressure is estimated at greater than 60 mmHg. There is moderate-severe pulmonary hypertension.
--- NOTE | 2018-09-30 21:28 | CP.PCM.CON ---
History of Present Illness - History of Present Illness History of Present Illness: CC: Dyspnea ad fluid overload 73 y o male PMhx ESRD on HD, HTN, hypothyroidism presents to the ED c/o worsening shortness of breath x 2 days. Pt is visiting from [place] with for grandsons birthday this and states they purposely missed HD appt on Sunday in [place] because they were away. Pts provided most of history at beds radhika due to pts current clinical status. States that pt was unable to fall asleep overnight due to worsening shortness of breath for the past several hrs at rest. When the shortness of breath started 2 days ago, pt thought it was 2/2 seasonal allergies and took dose of Benadryl for symptoms, which only helped a little. Also today c/o tongue swelling but pt states since being in the ED that has improved. Denies headache, dizziness, vision changes, chest pain, palpitations, n/v/d/c, abd pain, urinary complaints, LE edema, or other symptoms. PMhx: as noted above PSurgHx: Hernia surgery 3 mos ago, total thyroidectomy 2/2 nodules 7-8 y ago, cholecystectomy ([phone]) Allergies: NKDA Home meds: reviewed as per JUN Fam hx: DM2 Soc hx: Former cigar smoker quit 10 y ago; admits to having several alcoholic drinks this past weekend; denies illicit drug use; lives in [place] with Present on Admission - Present on Admission Any Indicators Present on Admission: No Review of Systems - Constitutional Constitutional: Fatigue, Malaise. absent: Chills, Fever - EENT Eyes: absent: Change in Vision - Cardiovascular Cardiovascular: Dyspnea, Dyspnea on Exertion. absent: Chest Pain, Palpitations, Pedal Edema, Syncope - Respiratory Respiratory: Dyspnea. absent: Cough, Wheezing, Chest Congestion - Gastrointestinal Gastrointestinal: absent: Abdominal Pain, Constipation, Diarrhea, Nausea, Vomiting - Genitourinary Genitourinary: absent: Change in Urinary Stream, Difficulty Urinating, Dysuria Meds Allergies/Adverse Reactions: Allergies Allergy/AdvReac Type Severity Reaction Status Date / Time No Known Allergies Allergy Unverified 09/29/18 03:41 Physical Exam - Constitutional Appears: Non-toxic, No Acute Distress Additional comments: On 100% non-rebreather mask - Head Exam Head Exam: ATRAUMATIC, NORMOCEPHALIC - Eye Exam Eye Exam: EOMI, Normal appearance, PERRL - ENT Exam ENT Exam: Mucous Membranes Moist - Respiratory Exam Respiratory Exam: Clear to Auscultation Bilateral, NORMAL BREATHING PATTERN. absent: Rales, Rhonchi, Wheezes - Cardiovascular Exam Cardiovascular Exam: REGULAR RHYTHM, +S1, +S2. absent: Gallop, Rubs, Systolic Murmur - GI/Abdominal Exam GI & Abdominal Exam: Normal Bowel Sounds, Soft. absent: Distended, Organomegaly, Tenderness - Extremities Exam Extremities exam: Positive for: full ROM, normal capillary refill, normal inspection, pedal pulses present. Negative for: pedal edema, tenderness - Neurological Exam Neurological exam: Alert, CN II-XII Intact, Oriented x3, Reflexes Normal - Skin Skin Exam: Dry, Intact, Normal Color, Warm Results - Vital Signs Recent Vital Signs: Last Vital Signs Temp 98.2 F 09/29/18 03:38 Pulse 73 09/29/18 03:38 Resp 24 09/29/18 03:38 BP 216/101 H 09/29/18 03:38 Pulse Ox 100 09/29/18 05:53 - Labs Result Diagrams: 09/29/18 04:11 09/29/18 04:11 Labs: Laboratory Results - last 24 hr 09/29/18 09/29/18 09/29/18 03:42 04:05 04:11 WBC 6.3 RBC 4.99 Hgb 12.1 Hct 38.5 MCV 77.3 L MCH 24.3 L MCHC 31.4 L RDW 16.1 H Plt Count 130 MPV 9.0 Neut % (Auto) 69.6 Lymph % (Auto) 8.3 L [place] % (Auto) 11.9 H Eos % (Auto) 9.1 H Baso % (Auto) 1.1 Neut # (Auto) 4.4 Lymph # (Auto) 0.5 L [place] # (Auto) 0.7 Eos # (Auto) 0.6 Baso # (Auto) 0.1 Neutrophils % (Manual) 67 Lymphocytes % (Manual) 9 L Monocytes % (Manual) 14 H Eosinophils % (Manual) 9 H Basophils % (Manual) 1 Platelet Estimate Slightly decreased L Polychromasia Slight Hypochromasia (manual) Slight Anisocytosis (manual) Slight Microcytosis (manual) Slight Macrocytosis (manual) Slight Ovalocytes Slight Schistocytes Slight PT INR pO2 54 VBG pH 7.35 VBG pCO2 37 L VBG HCO3 20.9 VBG Total CO2 21.5 L VBG O2 Sat (Calc) 85.2 H VBG Base Excess -4.7 L VBG Potassium 6.2 H* Sodium 136.0 Chloride 102.0 Glucose 98 Lactate 0.7 Crit Value Called To Rupa conway/rn Crit Value Called By Elton pino/rt Crit Value Read Back Y Blood Gas Notified Time 415 Potassium Carbon Dioxide Anion Gap BUN Creatinine Est GFR ( Amer) Est GFR (Non-Af Amer) POC Glucose (mg/dL) 103 Random Glucose Calcium Total Bilirubin AST ALT Alkaline Phosphatase Troponin I NT-Pro-B Natriuret Pep Total Protein Albumin Globulin Albumin/Globulin Ratio Venous Blood Potassium 6.2 H* 09/29/18 09/29/18 04:11 04:11 WBC RBC Hgb Hct MCV MCH MCHC RDW Plt Count MPV Neut % (Auto) Lymph % (Auto) [place] % (Auto) Eos % (Auto) Baso % (Auto) Neut # (Auto) Lymph # (Auto) [place] # (Auto) Eos # (Auto) Baso # (Auto) Neutrophils % (Manual) Lymphocytes % (Manual) Monocytes % (Manual) Eosinophils % (Manual) Basophils % (Manual) Platelet Estimate Polychromasia Hypochromasia (manual) Anisocytosis (manual) Microcytosis (manual) Macrocytosis (manual) Ovalocytes Schistocytes PT 12.1 INR 1.1 pO2 VBG pH VBG pCO2 VBG HCO3 VBG Total CO2 VBG O2 Sat (Calc) VBG Base Excess VBG Potassium Sodium 136 Chloride 97 L Glucose Lactate Crit Value Called To Crit Value Called By Crit Value Read Back Blood Gas Notified Time Potassium 6.5 H* Carbon Dioxide 20 L Anion Gap 26 H BUN 117 H* Creatinine 14.6 H* Est GFR ( Amer) 4 Est GFR (Non-Af Amer) 3 POC Glucose (mg/dL) Random Glucose 96 Calcium 9.7 Total Bilirubin 0.7 AST 35 ALT 23 Alkaline Phosphatase 81 Troponin I 0.2050 H* NT-Pro-B Natriuret Pep 48107 H Total Protein 7.7 Albumin 5.2 H Globulin 2.4 Albumin/Globulin Ratio 2.1 Venous Blood Potassium Assessment & Plan - Assessment and Plan (Free Text) Assessment: 73 y o male PMhx ESRD on HD, HTN, hypothyroidism presents to the ED c/o worsening shortness of breath x 2 days. Presenting with CHF exacerbation 2/2 missed dialysis appt, elevated troponin, hypertensive urgency. Admitted to tele. Plan: CHF exacerbation, fluid overload, shortness of breath -Admit to tele -May be 2/2 missed HD appt -Nephro (Dr. Coppola) consulted, recs appreciated, pt may need urgent hemodialysis -Cardio (Dr. Talamantes) consulted, recs appreciated -BNP 50590 on admission -Trop 0.2 on admission, NACHO x2 pending -Echo ordered -Daily weights, strict I's/O's -Diuresis prn -EKG on admission shows NSR 75 bpm, L axis deviation, peaked T-waves in V1-V6 -Renal diet -Currently on non-rebreather mask, cont to monitor Hyperkalemia -K 6.5 on admission -May be 2/2 missed HD appt -S/p albuterol, Ca gluconate, D50, insulin 10 in ED -F/u repeat CMP Hx ESRD on HD -Nephro consulted, Dr. Coppola, recs appreciated -Calcitriol daily -Cinacalcet daily -MVT daily HTN urgency -BP 200s/100s in ED, s/p Hydralazine x1 -Norvasc 10 mg PO daily -Hydralazine 100 mg PO tid -Hydralazine 10 mg IVP q6h prn -Labetalol 200 mg PO bid -Torsemide 100 mg PO daily -Pending A1c, lipid panel Hx hypothyroidism s/p total thyroidectomy -Synthroid 200 mcg PO daily -Thyroid studies pending PPX: Heparin, Protonix Past Patient History - Infectious Disease Hx of Infectious Diseases: None - Past Medical History & Family History Past Medical History?: Yes - Past Social History Smoking Status: Never Smoked - CARDIAC Hx Hypertension: Yes - RENAL Hx Dialysis: Yes Type of Dialysis Access: fistula to left arm - MUSCULOSKELETAL/RHEUMATOLOGICAL Hx Falls: No - PSYCHIATRIC Hx Substance Use: No - SURGICAL HISTORY Hx Cholecystectomy: Yes (x3yrs ago) Meds Allergies/Adverse Reactions: Allergies Allergy/AdvReac Type Severity Reaction Status Date / Time No Known Allergies Allergy Unverified 09/29/18 03:41 - Medications Medications: Current Medications Amlodipine Besylate (Norvasc) 10 mg PO DAILY [facility] Last Admin: 09/30/18 11:09 Dose: 10 mg Calcitriol (Rocaltrol) 0.25 mcg PO DAILY [facility] Last Admin: 09/30/18 11:11 Dose: 0.25 mcg Cinacalcet (Sensipar) 30 mg PO DAILY [facility] Last Admin: 09/30/18 11:00 Dose: 30 mg Famotidine (Pepcid) 20 mg PO DAILY [facility] Heparin Sodium (Porcine) (Heparin) 5,000 units SC Q8 [facility] Last Admin: 09/30/18 21:02 Dose: 5,000 units Hydralazine HCl (Apresoline) 25 mg PO Q8H [facility] Last Admin: 09/30/18 20:03 Dose: 25 mg Labetalol HCl (Trandate) 200 mg PO BID [facility] Last Admin: 09/30/18 17:05 Dose: 200 mg Levothyroxine Sodium (Synthroid) 200 mcg PO DAILY@0630 [facility] Multivitamins (Hexavitamin) 1 tab PO DAILY [facility] Last Admin: 09/30/18 11:10 Dose: 1 tab Sevelamer Carbonate (Renvela) 2,400 mg PO TIDCC [facility] Last Admin: 09/30/18 17:06 Dose: 2,400 mg Torsemide (Demadex) 100 mg PO DAILY [facility] Last Admin: 09/30/18 11:14 Dose: 100 mg Results - Vital Signs Recent Vital Signs: Last Vital Signs Temp 97.6 F 09/30/18 20:00 Pulse 62 09/30/18 20:36 Resp 16 09/30/18 20:00 BP 176/81 H 09/30/18 20:00 Pulse Ox 100 09/30/18 20:00 - Labs Result Diagrams: 09/30/18 05:52 09/30/18 17:36 Labs: Laboratory Results - last 24 hr 09/29/18 09/29/18 09/29/18 09:54 09:54 21:07 WBC RBC Hgb Hct MCV MCH MCHC RDW Plt Count MPV Neut % (Auto) Lymph % (Auto) [place] % (Auto) Eos % (Auto) Baso % (Auto) Neut # (Auto) Lymph # (Auto) [place] # (Auto) Eos # (Auto) Baso # (Auto) Neutrophils % (Manual) Lymphocytes % (Manual) Monocytes % (Manual) Platelet Estimate Polychromasia Hypochromasia (manual) Anisocytosis (manual) Target Cells Sodium Potassium Chloride Carbon Dioxide Anion Gap BUN Creatinine Est GFR ( Amer) Est GFR (Non-Af Amer) Random Glucose Calcium Phosphorus Magnesium Total Bilirubin AST ALT Alkaline Phosphatase Total Creatine Kinase 297 H CK-MB (Mass) 8.85 H Troponin I 0.2030 H* Total Protein Albumin Globulin Albumin/Globulin Ratio Triglycerides Cholesterol LDL Cholesterol Direct HDL Cholesterol Procalcitonin Hep Bs Antigen Negative Hep Bs Antibody Positive Hep B Core IgM Ab Negative Hepatitis C Antibody Negative Mycoplasma pneumon IgM 09/30/18 09/30/18 09/30/18 05:52 05:52 17:36 WBC 5.4 RBC 4.70 Hgb 11.9 L Hct 36.7 MCV 78.1 L MCH 25.3 L MCHC 32.4 L RDW 16.2 H Plt Count 123 L MPV 9.4 Neut % (Auto) 79.4 H Lymph % (Auto) 6.6 L [place] % (Auto) 13.6 H Eos % (Auto) 0.1 Baso % (Auto) 0.3 Neut # (Auto) 4.3 Lymph # (Auto) 0.4 L [place] # (Auto) 0.7 Eos # (Auto) 0.0 Baso # (Auto) 0.0 Neutrophils % (Manual) 83 H Lymphocytes % (Manual) 4 L Monocytes % (Manual) 13 H Platelet Estimate Slightly decreased L Polychromasia Slight Hypochromasia (manual) Slight Anisocytosis (manual) Slight Target Cells Slight Sodium 137 Potassium 6.3 H* Chloride 95 L Carbon Dioxide 22 Anion Gap 26 H BUN 101 H* Creatinine 12.4 H* Est GFR ( Amer) 5 Est GFR (Non-Af Amer) 4 Random Glucose 107 Calcium 9.3 Phosphorus 10.1 H Magnesium 2.4 H Total Bilirubin 0.8 AST 28 ALT 25 Alkaline Phosphatase 73 Total Creatine Kinase CK-MB (Mass) Troponin I Total Protein 6.8 Albumin 4.1 Globulin 2.7 Albumin/Globulin Ratio 1.5 Triglycerides 63 Cholesterol 153 LDL Cholesterol Direct 70 HDL Cholesterol 52 Procalcitonin 2.61 H Hep Bs Antigen Hep Bs Antibody Hep B Core IgM Ab Hepatitis C Antibody Mycoplasma pneumon IgM Negative 09/30/18 17:36 WBC RBC Hgb Hct MCV MCH MCHC RDW Plt Count MPV Neut % (Auto) Lymph % (Auto) [place] % (Auto) Eos % (Auto) Baso % (Auto) Neut # (Auto) Lymph # (Auto) [place] # (Auto) Eos # (Auto) Baso # (Auto) Neutrophils % (Manual) Lymphocytes % (Manual) Monocytes % (Manual) Platelet Estimate Polychromasia Hypochromasia (manual) Anisocytosis (manual) Target Cells Sodium 134 Potassium 4.4 Chloride 91 L Carbon Dioxide 28 Anion Gap 20 BUN 52 H Creatinine 7.8 H* D Est GFR ( Amer) 8 Est GFR (Non-Af Amer) 7 Random Glucose 112 H Calcium 9.5 Phosphorus Magnesium Total Bilirubin AST ALT Alkaline Phosphatase Total Creatine Kinase CK-MB (Mass) Troponin I Total Protein Albumin Globulin Albumin/Globulin Ratio Triglycerides Cholesterol LDL Cholesterol Direct HDL Cholesterol Procalcitonin Hep Bs Antigen Hep Bs Antibody Hep B Core IgM Ab Hepatitis C Antibody Mycoplasma pneumon IgM
--- NOTE | 2018-09-30 21:30 | CP.PCM.PN ---
Subjective - Date & Time of Evaluation Date of Evaluation: 09/30/18 Time of Evaluation: 21:28 - Subjective Subjective: Patient seen and examined. Feels better. Denies chest pain and dyspnea Objective - Vital Signs/Intake and Output Vital Signs (last 24 hours): Temp Pulse Resp BP Pulse Ox 97.9 F 62 14 160/81 H 100 09/30/18 12:45 09/30/18 12:45 09/30/18 12:45 09/30/18 12:45 09/30/18 12:45 Intake and Output: 09/30/18 09/30/18 06:59 18:59 Intake Total 550 550 Balance 550 550 - Medications Medications: Current Medications Amlodipine Besylate (Norvasc) 10 mg PO DAILY [facility] Last Admin: 09/30/18 11:09 Dose: 10 mg Calcitriol (Rocaltrol) 0.25 mcg PO DAILY [facility] Last Admin: 09/30/18 11:11 Dose: 0.25 mcg Cinacalcet (Sensipar) 30 mg PO DAILY [facility] Last Admin: 09/29/18 11:36 Dose: Not Given Heparin Sodium (Porcine) (Heparin) 5,000 units SC Q8 [facility] Last Admin: 09/30/18 05:50 Dose: 5,000 units Nicardipine HCl 25 mg/ Sodium (Chloride) 250 mls @ 25 mls/hr IV .Q10H [facility]; Protocol Last Admin: 09/30/18 09:00 Dose: Not Given Labetalol HCl (Trandate) 200 mg PO BID [facility] Last Admin: 09/30/18 11:15 Dose: 200 mg Levothyroxine Sodium (Synthroid) 200 mcg PO DAILY [facility] Last Admin: 09/29/18 11:36 Dose: Not Given Multivitamins (Hexavitamin) 1 tab PO DAILY [facility] Last Admin: 09/30/18 11:10 Dose: 1 tab Pantoprazole Sodium (Protonix Inj) 40 mg IVP DAILY [facility] Last Admin: 09/30/18 12:31 Dose: Not Given Sevelamer Carbonate (Renvela) 2,400 mg PO TIDCC [facility] Last Admin: 09/30/18 12:05 Dose: Not Given Torsemide (Demadex) 100 mg PO DAILY [facility] Last Admin: 09/30/18 11:14 Dose: 100 mg - Labs Labs: 09/30/18 05:52 09/30/18 05:52 PT 12.1 SECONDS (9.7-12.2) 09/29/18 04:11 INR 1.1 09/29/18 04:11 - Constitutional Appears: Non-toxic, No Acute Distress - Head Exam Head Exam: NORMAL INSPECTION - Eye Exam Eye Exam: EOMI - ENT Exam ENT Exam: Mucous Membranes Dry - Respiratory Exam Respiratory Exam: Decreased Breath Sounds, NORMAL BREATHING PATTERN. absent: Rales, Rhonchi - Cardiovascular Exam Cardiovascular Exam: REGULAR RHYTHM, +S1, +S2 - GI/Abdominal Exam GI & Abdominal Exam: Soft, Normal Bowel Sounds. absent: Distended, Firm, Guarding, Rigid, Tenderness, Rebound - Extremities Exam Extremities Exam: absent: Pedal Edema, Tenderness - Neurological Exam Neurological Exam: Alert, Awake, Oriented x3 - Psychiatric Exam Psychiatric exam: Normal Affect, Normal Mood - Skin Skin Exam: Intact, Normal Color, Warm Assessment and Plan (1) Fluid overload Assessment & Plan: Chest xray (09/29/18): worsening now moderate to severe venous congestion worsening airspace consolidative changes in the mid lung zones, worsening b/l pleural effusions, atherosclerotic calcification at aortic knob. Degenerative changes in the spine and shoulders., Suggestion of chronic deformities of some right lower lateral ribs Patient to have chest xray post dialysis today check procalcitonin, legionella, myocplasma igm, strep pneumonia Status: Acute (2) Diabetes Assessment & Plan: a1c: 4.9 He is controlled diabetic; reports prominent family hx of diabetes; used to be on meds but he has controlled on his own Status: Chronic (3) Elevated troponin Assessment & Plan: Cardiac risk factors: male, hypertension, diabetes, esrd, former smoker Troponin: 0.2050, 0.1870, 0.2030 pending echo elevated probnp Controlled a1c (4.9) T, cholestrol: 153, chol: 70, HDL: 42 Status: Acute Stress test prior to disharge (4) ESRD needing dialysis Assessment & Plan: Patient is on outpatient dialysis (M/W/F) he missed his session last Sunday Status: Acute (5) Hyperkalemia Assessment & Plan: Nephrology (Dr. Wiley) on consult patient is presently getting dialysis at bedside As outpatient, he is Sunday/Sunday/Sunday f/u BMP Status: Acute (6) Electrolyte imbalance Assessment & Plan: patient is getting dialysis at bedside Potassium elevated (6.3) Phosphorous elevated (10.1) Calcitriol 0.25mcg PO daily Renvela 2400mg PO TIDCC (started today) Status: Acute (7) Hypertensive emergency Assessment & Plan: likely secondary to fluid overload state Patient's nicardipine drip held this morning. Norvasc 10mg PO daily Labetalol 200mg PO BID [place] 100mg PO daiily Patient is on dialysis (as outpatient m/w/f) Status: Acute (8) Former smoker Status: Chronic (9) H/O total thyroidectomy Assessment & Plan: Synthroid 200mcg PO daily Status: Chronic (10) Prophylactic measure Assessment & Plan: DVT ppx: heparin 5000 units subq 8H GI ppx: switch from protonix to pepcid 20mg IV daily Status: Acute Objective - Vital Signs/Intake and Output Vital Signs (last 24 hours): Temp Pulse Resp BP Pulse Ox 97.6 F 62 16 176/81 H 100 09/30/18 20:00 09/30/18 20:36 09/30/18 20:00 09/30/18 20:00 09/30/18 20:00 Intake and Output: 09/30/18 10/01/18 18:59 06:59 Intake Total 1130 Output Total 4000 Balance -2870 - Medications Medications: Current Medications Amlodipine Besylate (Norvasc) 10 mg PO DAILY [facility] Last Admin: 09/30/18 11:09 Dose: 10 mg Calcitriol (Rocaltrol) 0.25 mcg PO DAILY [facility] Last Admin: 09/30/18 11:11 Dose: 0.25 mcg Cinacalcet (Sensipar) 30 mg PO DAILY [facility] Last Admin: 09/30/18 11:00 Dose: 30 mg Famotidine (Pepcid) 20 mg PO DAILY [facility] Heparin Sodium (Porcine) (Heparin) 5,000 units SC Q8 [facility] Last Admin: 09/30/18 21:02 Dose: 5,000 units Hydralazine HCl (Apresoline) 25 mg PO Q8H [facility] Last Admin: 09/30/18 20:03 Dose: 25 mg Labetalol HCl (Trandate) 200 mg PO BID [facility] Last Admin: 09/30/18 17:05 Dose: 200 mg Levothyroxine Sodium (Synthroid) 200 mcg PO DAILY@0630 [facility] Multivitamins (Hexavitamin) 1 tab PO DAILY [facility] Last Admin: 09/30/18 11:10 Dose: 1 tab Sevelamer Carbonate (Renvela) 2,400 mg PO TIDCC [facility] Last Admin: 09/30/18 17:06 Dose: 2,400 mg Torsemide (Demadex) 100 mg PO DAILY [facility] Last Admin: 09/30/18 11:14 Dose: 100 mg - Labs Labs: 09/30/18 05:52 09/30/18 17:36 PT 12.1 SECONDS (9.7-12.2) 09/29/18 04:11 INR 1.1 09/29/18 04:11
[2018-10-01] MEDS ORDERED: Vancomycin 1 gm/NS 200 ml 1 GM/200 ML BAG IVPB SCH (01:00)
[2018-10-01] MEDS: Piperacill/Tazo 2.25gm in Dex 2.25 GM/50 ML BAG IVPB SCH ×2 (02:43→08:26)
[2018-10-01] MEDS ORDERED: Levothyroxine 200 MCG TAB PO SCH (06:30)
[2018-10-01 06:39] LABS: BASO % 0.7 % (0.0-2.0); EOS # 0.3 K/uL (0.0-0.7); EOS % 6.7 % (0.0-4.0); HEMOGLOBIN 12.4 g/dL (12.0-18.0); LYMPH # 0.5 K/uL (1.0-4.3); MEAN CELL VOLUME 78.3 fL (80.0-94.0); MEAN CORPUSCULAR HEMOGLOBIN 25.1 pg (27.0-31.0); MEAN CORPUSCULAR HGB CONC 32.1 g/dL (33.0-37.0); MEAN PLATELET VOLUME 9.6 fL (7.2-11.7); MONO # 0.7 K/uL (0.0-0.8); MONO % 14.2 % (0.0-10.0); NEUT # 3.2 K/uL (1.8-7.0); NEUT % 67.4 % (50.0-75.0); RBC 4.92 Mil/uL (4.40-5.90); RED CELL DISTRIBUTION WIDTH 16.2 % (11.5-14.5); WHITE BLOOD COUNT 4.7 K/uL (4.8-10.8)
[2018-10-01 07:22] LABS: ALB/GLOB RATIO 1.5 (1.0-2.1); ALBUMIN 4.1 g/dL (3.5-5.0)
[2018-10-01] MEDS: Multiple Vitamins Tab PO SCH (09:07)
--- NOTE | 2018-10-01 12:29 | CP.PCM.PN ---
Subjective - Date & Time of Evaluation Date of Evaluation: 10/01/18 Time of Evaluation: 12:28 - Subjective Subjective: Nephrology Consultation Note Assessment: stable Missed HD, HTN emergency with pulm edema and hyperkalemia Hypertensive Chronic Kidney Disease (I12.0) End stage renal disease (N18.6) dependence on hemodialysis (Z99.2) (MWF) via AVF Anemia (D64.9), Hyperphosphatemia (E83.39), Secondary Hyperparathyroidism (E21.1), HTN (I12.0) hypothyroidism Plan: Will plan for HD MWF as ordered. Continue with Nephrovite 1 tab/day. PRBC as needed for anemia. not on ERIN with dialysis as last Hb >10 added with phos binders, last phos level 7.5 Continue with calcitriol. also on sensipar BP control with meds as ordered. Patient not on RAAS sandra as was with hyperkalemia. meds being adjusted Glycemic control, Dialysis consistent diet Further work up/management as per primary team Dose meds/antibiotics (if needed) for ESRD status. Avoid fleets enema/magnesium based laxatives. dialysis and dietary compliance d/w patient Thanks for allowing me to participate in care of your patient. Will follow patient with you. Please call if any Qs. had d/w team Dr Thomas Coppola Office: [phone] Subjective: Noted events overnight. Patients feels better. Denies chest pain, palpitation, shortness of breath, leg swelling. All other negative Physical Examination: General Appearance: Comfortable, in no acute respiratory distress, co-operative . Vitals reviewed and noted as below Head; Atraumatic, normocephalic ENT: no ulcers no thrush. Tongue is midline. Oropharynx: no rash or ulcers. EYES: Pupils are equal, round and reactive to light accommodation. Eye muscles and extraocular movement intact. Sclera is anicteric. Neck; supple no lymphadenopathy, no thyromegaly or bruit Lungs: Normal respiratory rate/effort. Breath sounds bilateral reduced at bases Heart: Normal rate. s1s2 normal. No rub or gallop. Extremities: no edema. No varicose veins Neurological: Patient is alert, awake and oriented to person, place and time. No focal deficit. Strength bilateral appropriate and equal Skin: Warm and dry. Normal turgor. No rash. Palpitation: Normal elasticity for age Abdomen: Abdomen is soft. Bowel sounds +. There is no abdominal tenderness, no guarding/rigidity or organomegaly Psych: normal insight and normal affect/mood MSK: no joint tenderness or swelling. Digits and nails normal, no deformity : kidney or bladder not palpable Access: AVF Labs/imaging reviewed. Past medical history, past surgical history, family history, social history, allergy reviewed and noted as below Family Hx: no hx of CKD. Non contributory Objective - Vital Signs/Intake and Output Vital Signs (last 24 hours): Temp Pulse Resp BP Pulse Ox 98 F 61 16 176/72 H 98 10/01/18 08:00 10/01/18 11:22 10/01/18 11:22 10/01/18 11:22 10/01/18 11:22 Intake and Output: 10/01/18 10/01/18 06:59 18:59 Intake Total 250 350 Balance 250 350 - Medications Medications: Current Medications Amlodipine Besylate (Norvasc) 10 mg PO DAILY [facility] Last Admin: 10/01/18 09:09 Dose: Not Given Aspirin (Aspirin Chewable) 81 mg PO DAILY [facility] Last Admin: 10/01/18 09:08 Dose: 81 mg Calcitriol (Rocaltrol) 0.25 mcg PO DAILY [facility] Last Admin: 10/01/18 09:08 Dose: 0.25 mcg Cinacalcet (Sensipar) 30 mg PO DAILY [facility] Last Admin: 10/01/18 09:08 Dose: 30 mg Famotidine (Pepcid) 20 mg PO DAILY [facility] Last Admin: 10/01/18 09:08 Dose: 20 mg Heparin Sodium (Porcine) (Heparin) 5,000 units SC Q8 [facility] Last Admin: 10/01/18 05:23 Dose: 5,000 units Hydralazine HCl (Apresoline) 25 mg PO Q8H [facility] Last Admin: 10/01/18 11:19 Dose: 25 mg Piperacillin Sod/Tazobactam Sod (Zosyn 2.25 Gm Iv Premix) 2.25 gm in 50 mls @ 100 mls/hr IVPB Q8H [facility]; Protocol Last Admin: 10/01/18 08:26 Dose: 100 mls/hr Vancomycin/Sodium Chloride (Vancomycin 1 Gm/Ns 200 Ml) 1 gm in 200 mls @ 166.7 mls/hr IVPB Q48H [facility]; Protocol Stop: 10/06/18 01:01 Last Admin: 10/01/18 02:43 Dose: 166.7 mls/hr Labetalol HCl (Normodyne) 300 mg PO Q12H [facility] Levothyroxine Sodium (Synthroid) 200 mcg PO DAILY@0630 [facility] Last Admin: 10/01/18 05:34 Dose: 200 mcg Multivitamins (Hexavitamin) 1 tab PO DAILY [facility] Last Admin: 10/01/18 09:07 Dose: 1 tab Sevelamer Carbonate (Renvela) 2,400 mg PO TIDCC [facility] Last Admin: 10/01/18 08:32 Dose: 2,400 mg Torsemide (Demadex) 100 mg PO DAILY [facility] Last Admin: 10/01/18 09:08 Dose: 100 mg - Labs Labs: 10/01/18 06:29 10/01/18 06:29 PT 12.1 SECONDS (9.7-12.2) 09/29/18 04:11 INR 1.1 09/29/18 04:11
[2018-10-01 13:25] VITALS: RESP 17
[2018-10-01 14:06] VITALS: BP 176/77; PULSE 61; TEMP 98.5; O2SAT 100
--- NOTE | 2018-10-01 14:54 | PCM.HF ---
Heart Failure Core Measure - Heart Failure Ejection Fraction: 40 % or Greater Left Ventricular Function to be assessed after discharge: Yes THOMPSON Inhibitor Prescribed: No Contraindication/Reason for not providing: ESRD/hyperkalemia Beta-Adolph Prescribed: None Contraindication/Reason for not providing: given labetolol for BP control Angiotensin II Receptor Adolph Prescribed: No Contraindication/Reason for not providing: ESRD/hyperkalemia AnticoagulationTherapy for Atrial Fibrillation/Atrialflutter: No Contraindication/Reason for not providing: not clinically indicated Aldosterone Antagonist Prescribed: No Contraindication/Reason for not providing: ESRD/hyperkalemia Hydralazine Nitrate Prescribed: Yes Implantable Cardioverter Defibrillator Therapy: No Contraindication/Reason for not providing: not clinically indicated Cardiac Resynchronization Therapy Prescribed: No Contraindication/Reason for not providing: not clinically indicated - Follow up Will be discharged to: Home Follow Up Date (must be within 7 days from discharge): 10/08/18 Follow Up Time: 07:00
[2018-10-01] MEDS ORDERED: Labetalol Hydrochloride 300 mg Tab PO SCH (16:00)
--- NOTE | 2018-10-01 19:28 | CP.PCM.DIS ---
Provider - Provider Date of Admission: 09/29/18 05:31 Attending physician: Lauren Coughlin DO Consults: 09/29/18 06:03 Cardiology Consult Stat Comment: Consulting Provider: Alejandro Talamantes Consulting Physician: Alejandro Talamantes Reason for Consult: CHF, elevated BNP, elevated trop 09/29/18 06:04 Nephrology Consult Stat Comment: Consulting Provider: Thomas Coppola Consulting Physician: Thomas Coppola Reason for Consult: ESRD on HD, missed dialysis appt, hyperkalemia, sob 10/01/18 00:30 Inpatient [employer] Core Measures Referral Routine Comment: Physician Instructions: Reason For Exam: chf Time Spent in preparation of Discharge (in minutes): 35 Diagnosis - Discharge Diagnosis (1) ESRD needing dialysis Status: Chronic (2) Electrolyte imbalance Status: Resolved (3) Elevated troponin Status: Acute (4) Fluid overload Status: Resolved (5) Hyperkalemia Status: Resolved (6) Hypertensive emergency Status: Resolved (7) Shortness of breath Status: Resolved (8) Diabetes Status: Chronic (9) Former smoker Status: Chronic (10) H/O total thyroidectomy Status: Chronic Hospital Course - Lab Results Lab Results: Most Recent Lab Values WBC 4.7 K/uL (4.8-10.8) L 10/01/18 06:29 RBC 4.92 Mil/uL (4.40-5.90) 10/01/18 06:29 Hgb 12.4 g/dL (12.0-18.0) 10/01/18 06:29 Hct 38.5 % (35.0-51.0) 10/01/18 06:29 MCV 78.3 fL (80.0-94.0) L 10/01/18 06:29 MCH 25.1 pg (27.0-31.0) L 10/01/18 06:29 MCHC 32.1 g/dL (33.0-37.0) L 10/01/18 06:29 RDW 16.2 % (11.5-14.5) H 10/01/18 06:29 Plt Count 112 K/uL (130-400) L 10/01/18 06:29 MPV 9.6 fL (7.2-11.7) 10/01/18 06:29 Neut % (Auto) 67.4 % (50.0-75.0) 10/01/18 06:29 Lymph % (Auto) 11.0 % (20.0-40.0) L 10/01/18 06:29 [place] % (Auto) 14.2 % (0.0-10.0) H 10/01/18 06:29 Eos % (Auto) 6.7 % (0.0-4.0) H 10/01/18 06:29 Baso % (Auto) 0.7 % (0.0-2.0) 10/01/18 06:29 Neut # (Auto) 3.2 K/uL (1.8-7.0) 10/01/18 06:29 Lymph # (Auto) 0.5 K/uL (1.0-4.3) L 10/01/18 06:29 [place] # (Auto) 0.7 K/uL (0.0-0.8) 10/01/18 06:29 Eos # (Auto) 0.3 K/uL (0.0-0.7) 10/01/18 06:29 Baso # (Auto) 0.0 K/uL (0.0-0.2) 10/01/18 06:29 Neutrophils % (Manual) 83 % (50-75) H 09/30/18 05:52 Lymphocytes % (Manual) 4 % (20-40) L 09/30/18 05:52 Monocytes % (Manual) 13 % (0-10) H 09/30/18 05:52 Eosinophils % (Manual) 9 % (0-4) H 09/29/18 04:11 Basophils % (Manual) 1 % (0-2) 09/29/18 04:11 Platelet Estimate Slightly decreased (NORMAL) L 09/30/18 05:52 Polychromasia Slight 09/30/18 05:52 Hypochromasia (manual) Slight 09/30/18 05:52 Anisocytosis (manual) Slight 09/30/18 05:52 Microcytosis (manual) Slight 09/29/18 04:11 Macrocytosis (manual) Slight 09/29/18 04:11 Target Cells Slight 09/30/18 05:52 Ovalocytes Slight 09/29/18 04:11 Schistocytes Slight 09/29/18 04:11 PT 12.1 SECONDS (9.7-12.2) 09/29/18 04:11 INR 1.1 09/29/18 04:11 pO2 54 mm/Hg (30-55) 09/29/18 04:05 VBG pH 7.35 (7.32-7.43) 09/29/18 04:05 VBG pCO2 37 mmHg (40-60) L 09/29/18 04:05 VBG HCO3 20.9 mmol/L 09/29/18 04:05 VBG Total CO2 21.5 mmol/L (22-28) L 09/29/18 04:05 VBG O2 Sat (Calc) 85.2 % (40-65) H 09/29/18 04:05 VBG Base Excess -4.7 mmol/L (0.0-2.0) L 09/29/18 04:05 VBG Potassium 6.2 mmol/L (3.6-5.2) H* 09/29/18 04:05 Sodium 136.0 mmol/l (132-148) 09/29/18 04:05 Chloride 102.0 mmol/L (98-107) 09/29/18 04:05 Glucose 98 mg/dl (75-110) 09/29/18 04:05 Lactate 0.7 mmol/L (0.7-2.1) 09/29/18 04:05 Crit Value Called To Rupa conway/rn 09/29/18 04:05 Crit Value Called By Elton pino/rt 09/29/18 04:05 Crit Value Read Back Y 09/29/18 04:05 Blood Gas Notified Time 415 09/29/18 04:05 Sodium 135 mmol/L (132-148) 10/01/18 06:29 Potassium 4.6 mmol/L (3.6-5.2) 10/01/18 06:29 Chloride 93 mmol/L (98-107) L 10/01/18 06:29 Carbon Dioxide 27 mmol/L (22-30) 10/01/18 06:29 Anion Gap 20 (10-20) 10/01/18 06:29 BUN 58 mg/dL (9-20) H 10/01/18 06:29 Creatinine 9.3 mg/dL (0.8-1.5) H* 10/01/18 06:29 Est GFR ( Amer) 7 10/01/18 06:29 Est GFR (Non-Af Amer) 6 10/01/18 06:29 POC Glucose (mg/dL) 103 mg/dL (65-110) 09/29/18 03:42 Random Glucose 69 mg/dL (75-110) L D 10/01/18 06:29 Hemoglobin A1c 4.9 % (4.2-6.5) 09/29/18 06:57 Calcium 9.0 mg/dl (8.6-10.4) 10/01/18 06:29 Phosphorus 7.5 mg/dL (2.5-4.5) H 10/01/18 06:29 Magnesium 2.1 mg/dL (1.6-2.3) 10/01/18 06:29 Total Bilirubin 0.9 mg/dL (0.2-1.3) 10/01/18 06:29 AST 30 U/L (17-59) 10/01/18 06:29 ALT 26 U/L (21-72) 10/01/18 06:29 Alkaline Phosphatase 73 U/L (38-126) 10/01/18 06:29 Total Creatine Kinase 297 U/L (55-170) H 09/29/18 21:07 CK-MB (Mass) 8.85 ng/mL (0.0-3.38) H 09/29/18 21:07 Troponin I 0.2030 ng/mL (0.00-0.120) H* 09/29/18 21:07 NT-Pro-B Natriuret Pep 64241 pg/mL (0-900) H 09/29/18 04:11 Total Protein 6.9 g/dL (6.3-8.3) 10/01/18 06:29 Albumin 4.1 g/dL (3.5-5.0) 10/01/18 06:29 Globulin 2.8 gm/dL (2.2-3.9) 10/01/18 06:29 Albumin/Globulin Ratio 1.5 (1.0-2.1) 10/01/18 06:29 Triglycerides 63 mg/dL (0-149) 09/30/18 05:52 Cholesterol 153 mg/dL (0-199) 09/30/18 05:52 LDL Cholesterol Direct 70 mg/dL (0-129) 09/30/18 05:52 HDL Cholesterol 52 mg/dL (30-70) 09/30/18 05:52 Procalcitonin 2.61 NG/ML (0.19-0.49) H 09/30/18 17:36 Free T4 0.89 ng/dL (0.78-2.19) 09/29/18 06:57 Free T3 pg/mL 2.07 pg/mL (2.77-5.27) L 09/29/18 06:57 TSH 3rd Generation 17.10 mIU/L (0.46-4.68) H 09/29/18 06:57 Venous Blood Potassium 6.2 mmol/L (3.6-5.2) H* 09/29/18 04:05 Hep Bs Antigen Negative (NEGATIVE) 09/29/18 09:54 Hep Bs Antibody Positive (NEGATIVE) 09/29/18 09:54 Hep B Core IgM Ab Negative (NEGATIVE) 09/29/18 09:54 Hepatitis C Antibody Negative (NEGATIVE) 09/29/18 09:54 Mycoplasma pneumon IgM Negative (NEGATIVE) 09/30/18 17:36 - Hospital Course Hospital Course: HPI at time of admission: "73 y o male PMhx ESRD on HD, HTN, hypothyroidism presents to the ED c/o worsening shortness of breath x 2 days. Pt is visiting from [place] with for grandsons birthday this weekend and states they purposely missed HD appt on Sunday in [place] because they were away. Pts provided most of history at bedside due to pts current clinical status. States that pt was unable to fall asleep overnight due to worsening shortness of breath for the past several hrs at rest. When the shortness of breath started 2 days ago, pt thought it was 2/2 seasonal allergies and took dose of Benadryl for symptoms, which only helped a little. Also today c/o tongue swelling but pt states since being in the ED that has improved. Denies headache, dizziness, vision changes, chest pain, palpitations, n/v/d/c, abd pain, urinary complaints, LE edema, or other symptoms." Hospital Course: Pertinent imaging: -CXR on admission 09/29: Moderate venous congestion. Patchy airspace opacifications seen within the mid to lower lung zones b/l. B/l hilar prominence. Mild atelectasis in the R midlung zone. Suggestion of a small L pleural effusion. Enlarged ectatic aorta. Cardiomegaly. -Repeat CXR 09/29: worsening now moderate to severe venous congestion worsening airspace consolidative changes in the mid lung zones, worsening b/l pleural effusions, atherosclerotic calcification at aortic knob. Degenerative changes in the spine and shoulders, Suggestion of chronic deformities of some right lower lateral ribs. -Repeat CXR 09/30: Improved aeration with mild residual patchy infiltrates in the R mid/lower lung. -Echo 09/30: Mild-mod concentric LVH. Systolic fx mildly impared. EF 45-50%. Global hypokinesis of L ventricle. LV filling pressure increased. L and R atria severely dilated. Mild aortic regurgitation. Mitral regurgitation mild. Mild-mod tricuspid regurgitation. R ventricular systolic pressure estimated at greater than 60 mm Hg. Mod-severe pulmonary HTN. Pt was admitted for elevated troponin, CHF exacerbation, HTN urgency, fluid overload, and hyperkalemia, all likely 2/2 missed HD appt. Nephrology (Dr. Coppola) and Cardiology (Dr. Talamantes) were consulted. Pt had emergent dialysis treatment x2 to relieve fluid overload. BPs were also elevated in 200s/100s on admission, HTN meds were adjusted with recommendations from Nephrology. BP was improved and more controlled prior to d/c. Troponins were trended, Cardiology recommended pt f/u with primary medical director on outpatient basis after d/c for stress test in [place]. Procalcitonin was elevated. Hyperkalemia downtrended and resolved prior to d/c. Pt was d/c to home in stable condition on 10/01/18 and instructed to f/u with PMD in [place] within 2-3 days of hospital d/c, Paediatric Surgeon within 1 week of d/c, and instructed to resume HD treatment (M, W, F) on routine schedule starting tomorrow at outpatient center. Discharge Exam - Head Exam Head Exam: NORMAL INSPECTION - Eye Exam Eye Exam: EOMI, Normal appearance, PERRL - ENT Exam ENT Exam: Mucous Membranes Moist - Respiratory Exam Respiratory Exam: Clear to PA & Lateral, NORMAL BREATHING PATTERN, UNREMARKABLE - Cardiovascular Exam Cardiovascular Exam: REGULAR RHYTHM, +S1, +S2 - GI/Abdominal Exam GI & Abdominal Exam: Normal Bowel Sounds, Soft, Unremarkable - Extremities Exam Extremities exam: full ROM, normal capillary refill, normal inspection, pedal pulses present - Neurological Exam Neurological exam: Alert, CN II-XII Intact, Oriented x3, Reflexes Normal - Skin Skin Exam: Dry, Intact, Warm Discharge Plan - Discharge Medications Prescriptions: amLODIPine [Norvasc] 10 mg PO DAILY #30 tab Aspirin [Aspirin Chewable] 81 mg PO DAILY #30 chew Calcitriol 0.25 mcg PO DAILY #30 capsule Cinacalcet [Sensipar] 30 mg PO DAILY #30 tab Ciprofloxacin [Cipro] 500 mg PO DAILY #5 tab Famotidine [Pepcid] 20 mg PO DAILY #30 tab Hydralazine HCl 50 mg PO BID #60 tablet Labetalol Hydrochloride [Normodyne] 300 mg PO Q12H #60 tab Levothyroxine [Synthroid] 0.2 mg PO DAILY #30 tab Multivitamin [Daily [place]] 1 tab PO DAILY #30 tablet Sucroferric Oxyhydroxide [Velphoro] 500 mg PO BID #60 tab.chew Torsemide [Demadex] 100 mg PO DAILY #30 tab - Follow Up Plan Condition: STABLE Disposition: HOME/ ROUTINE Instructions: Hyperkalemia (DC), Dependent Edema (DC), Kidney Disease Diet (For People Not on Dialysis), High Blood Pressure Emergencies, End Stage Kidney Disease (DC), Dialysis and Diet, Hyperkalemia (DC) Additional Instructions: Please follow up with your primary care physician in [place] within 2-3 days of hospital discharge. Please follow up with your outpatient dialysis center tomorrow 10/02/18 for scheduled hemodialysis treatment. Please follow up with your medical director in [place] after discharge for outpatient stress test PLEASE NOTE: There are new doses for your home medications. All medications you should be on currently you have received prescriptions for prior to discharge. Please note doses have changed for some of your blood pressure medications. Please take as prescribed. Bring updated medication list to your next office vis it with your primary doctor. Please weigh yourself daily, keep a diary of these weights. Please limit your water intake to 1.5 liters/day. This includes drinks, soup broths and anything liquid you consume to eat on a daily basis. Should your symptoms recur, please call your primary care physician or report to your nearest emergency department
== END 2018-10-01 16:22 | disposition home or self-care (01) | DRG 291 ==
LOC: C.ER 03:26 → C.3T 05:31 → OBSVTOIN 05:31 → C.9E 05:50 → C.6T 05:55 → C.9E 08:08 → C.9I 08:20 → C.6T 10-01 13:53
PROVIDERS: ADMIT Hospitalist; ATTEND Hospitalist
PROC: 5A1D70Z Performance of Urinary Filtration, Intermittent, Less than 6 Hours Per Day (ICD-10-PCS; principal; 2018-09-29)
PROC: 5A09357 Assistance with Respiratory Ventilation, Less than 24 Consecutive Hours, Continuous Positive Airway Pressure (ICD-10-PCS; 2018-09-29)
DX: I13.2 Hypertensive heart and chronic kidney disease with heart failure and with stage 5 chronic kidney disease, or end stage renal disease (principal); I50.23 Acute on chronic systolic (congestive) heart failure; N18.6 End stage renal disease; I16.1 Hypertensive emergency; G93.41 Metabolic encephalopathy; N25.81 Secondary hyperparathyroidism of renal origin; J98.11 Atelectasis; E83.39 Other disorders of phosphorus metabolism; D63.1 Anemia in chronic kidney disease; E11.22 Type 2 diabetes mellitus with diabetic chronic kidney disease; E87.5 Hyperkalemia; E89.0 Postprocedural hypothyroidism; I08.1 Rheumatic disorders of both mitral and tricuspid valves; I27.20 Pulmonary hypertension, unspecified; E78.5 Hyperlipidemia, unspecified; I77.819 Aortic ectasia, unspecified site; Z87.891 Personal history of nicotine dependence; Z90.49 Acquired absence of other specified parts of digestive tract; Z99.2 Dependence on renal dialysis; Z79.890 Hormone replacement therapy; Z83.3 Family history of diabetes mellitus